=== PATIENT | female | born 1955 | race African-American/Black ===

== ENCOUNTER 2019-02-25 01:22 | Emergency (ER) | payer OTHER ==
[~2019-02-25] VITALS: Ht 170.2 cm; Wt 127.0 kg
[2019-02-25 02:58] LABS: Urine Bacteria FEW /hpf (None Seen); Urine Blood 1+ /uL (Negative); Urine Budding Yeast OCCASIONAL /hpf (None Seen); Urine Specific Gravity 1.023 (1.001-1.035); Urine WBC 3 /hpf (0 - 5)
[2019-02-25] MEDS ORDERED: SODIUM CHLORIDE 0.9% 1,000 ML IV ONE (07:36)
[2019-02-25 07:58] LABS: Basophils # (auto) 0.1 uL; Basophils % (auto) 0.8 % (0.0-2.0); Hemoglobin 13.3 g/dL (12.2-16.2); Mean Corpuscular Hemoglobin 25.8 pg (28.0-32.0); Nucleated Red Blood Cells % 0.1 %
[2019-02-25 08:00] LABS: Eosinophils # (auto) 0.4 uL; Eosinophils % (auto) 4.7 % (0.0-7.0); Hematocrit 41.4 % (36.0-46.0); Lymphocytes # (auto) 2.9 uL; Lymphocytes % (auto) 32.5 % (10.0-50.0); Mean Corpuscular Hgb Conc. 32.2 g/dL (32.0-36.0); Mean Corpuscular Volume 80.1 fL (80.0-100.0); Monocytes # (auto) 0.8 uL; Neutrophils # (auto) 4.7 uL; Platelet Count (auto) 234 10^3/uL (140-450); Red Blood Cells 5.17 10^6/uL (4.0-5.20); Red Cell Distribution Width 14.7 % (11.8-14.3); White Blood Cell 8.9 10^3/uL (4.4-10.8)
[2019-02-25 08:12] LABS: Albumin 3.3 g/dL (3.4-5.0); BUN/Creatinine Ratio 14.9; Calcium 9.3 mg/dL (8.5-10.1); Potassium 3.1 mmol/L (3.5-5.1)
[2019-02-25 08:17] LABS: Bilirubin, Total 0.5 mg/dL (0.2-1.0); Total Protein 7.7 g/dL (6.4-8.2)
[2019-02-25] MEDS ORDERED: IOHEXOL 350 MG/ML 100ML IJ ONE (08:41)
[2019-02-25] MEDS ORDERED: POTASSIUM EFFERVESENT TAB 25 MEQ PO ONE (08:45)
[2019-02-25 14:01] VITALS: BP 174/89
== END 2019-02-25 14:46 | disposition home or self-care (01) ==
LOC: ER 01:22
DX: R00.2 Palpitations (principal); E87.6 Hypokalemia; E44.1 Mild protein-calorie malnutrition; I49.3 Ventricular premature depolarization; I11.0 Hypertensive heart disease with heart failure; I50.9 Heart failure, unspecified; Z90.710 Acquired absence of both cervix and uterus; Z68.41 Body mass index [BMI] 40.0-44.9, adult; Z87.440 Personal history of urinary (tract) infections
CPT/HCPCS: 36415; 71046; 71275; 80053; 81001; 83735; 84443; 84484; 85025; 85379; 94761; 99284; Q9967

== ENCOUNTER 2022-02-06 17:24 | Inpatient (IN) | payer OTHER ==
[~2022-02-06] VITALS: Ht 167.6 cm; Wt 132.0 kg
[2022-02-06] MEDS ORDERED: ASPirin 325 MG TAB PO ONE (19:00)
[2022-02-06 19:21] LABS: Eosinophils # (auto) 0.2 10 ^3/uL (0-0.8); Mean Corpuscular Hemoglobin 25.4 pg (28.0-32.0); Mean Corpuscular Hgb Conc. 32.5 g/dL (32.0-36.0); Monocytes # (auto) 1.2 10 ^3/uL (0-1.3); Nucleated Red Blood Cells % 0.1 %
[2022-02-06 19:23] LABS: Basophils # (auto) 0.1 10 ^3/uL (0-0.2); Basophils % (auto) 0.5 % (0.0-2.0); Eosinophils % (auto) 1.4 % (0.0-7.0); Hematocrit 44.8 % (36.0-46.0); Hemoglobin 14.6 g/dL (12.2-16.2); Lymphocytes # (auto) 1.9 10 ^3/uL (0.4-5.4); Lymphocytes % (auto) 14.3 % (10.0-50.0); Mean Corpuscular Volume 78.4 fL (80.0-100.0); Monocytes % (auto) 9.4 % (0.0-12.0); Neutrophils # (auto) 9.8 10 ^3/uL (1.6-8.6); Neutrophils % (auto) 74.4 % (37.0-80.0); Red Blood Cells 5.72 10^6/uL (4.0-5.20); Red Cell Distribution Width 15.6 % (11.8-14.3); White Blood Cell 13.3 10^3/uL (4.4-10.8)
[2022-02-06 19:46] LABS: Albumin 3.2 g/dL (3.4-5.0); Calcium 9.8 mg/dL (8.5-10.1)
[2022-02-06 19:49] LABS: BUN/Creatinine Ratio 11.9; Total Protein 8.6 g/dL (6.4-8.2)
[2022-02-06] MEDS ORDERED: NITROGLYCERIN 0.4 MG SL TAB SL ONE (20:30)
[2022-02-06] MEDS ORDERED: MORPHINE SULFATE INJECTION 2 MG/ML SYRG IV PRN (21:45)
[2022-02-06] MEDS ORDERED: ONDANSETRON HCL 4 MG/2 ML VIAL IV PRN (21:45)
[2022-02-06] MEDS ORDERED: NITROGLYCERIN 0.4 MG SL TAB SL PRN (21:45)
[2022-02-06] MEDS ORDERED: ACETAMINOPHEN 325 MG TAB PO PRN (21:45)
[2022-02-06] MEDS ORDERED: ENOXAPARIN SOD 100 MG/1 ML SYRINGE SC ONE (21:45)
[2022-02-06] MEDS ORDERED: TEMAZEPAM 15 MG CAP PO PRN (21:45)
[2022-02-06] MEDS: SACUBITRIL-VALSARTAN 24mg/26mg TAB PO SCH (23:11)
[2022-02-06] MEDS: ATORVASTATIN 20 MG TAB PO SCH (23:11)
[2022-02-07 02:25] VITALS: BP 146/74
[2022-02-07 05:00] VITALS: BP 134/72
[2022-02-07] MEDS: BUMETANIDE 1 MG TAB PO SCH ×2 (05:27→16:20)
[2022-02-07 06:31] LABS: Basophils # (auto) 0.1 10 ^3/uL (0-0.2); Neutrophils % (auto) 60.5 % (37.0-80.0)
[2022-02-07 06:35] LABS: Basophils % (auto) 1.2 % (0.0-2.0); Eosinophils # (auto) 0.1 10 ^3/uL (0-0.8); Hematocrit 41.6 % (36.0-46.0); Hemoglobin 13.6 g/dL (12.2-16.2); Lymphocytes % (auto) 25.1 % (10.0-50.0); Mean Corpuscular Hemoglobin 25.4 pg (28.0-32.0); Mean Corpuscular Hgb Conc. 32.7 g/dL (32.0-36.0); Mean Corpuscular Volume 77.5 fL (80.0-100.0); Monocytes # (auto) 1.4 10 ^3/uL (0-1.3); Monocytes % (auto) 12.2 % (0.0-12.0); Neutrophils # (auto) 7.2 10 ^3/uL (1.6-8.6); Nucleated Red Blood Cells % 0.1 %; Red Blood Cells 5.37 10^6/uL (4.0-5.20); Red Cell Distribution Width 15.4 % (11.8-14.3); White Blood Cell 11.9 10^3/uL (4.4-10.8)
[2022-02-07 07:05] LABS: Albumin 2.9 g/dL (3.4-5.0); BUN/Creatinine Ratio 14.1; Calcium 9.6 mg/dL (8.5-10.1); Potassium 3.3 mmol/L (3.5-5.1)
[2022-02-07 07:08] LABS: Bilirubin, Total 1.1 mg/dL (0.2-1.0)
[2022-02-07] MEDS: SACUBITRIL-VALSARTAN 24mg/26mg TAB PO SCH ×2 (08:23→22:10)
[2022-02-07] MEDS: ASPirin 81 mg TAB PO SCH (08:23)
[2022-02-07] MEDS: NIFEdipine ER 30 MG TAB PO SCH (08:24)
[2022-02-07] MEDS: PANTOPRAZOLE 40 MG TAB PO SCH (08:24)
[2022-02-07 09:00] VITALS: BP 116/53
[2022-02-07] MEDS: ENOXAPARIN SOD 40 MG/0.4 ML SYRINGE SC SCH ×2 (10:57→12:10)
[2022-02-07] MEDS ORDERED: ENOXAPARIN SOD 150 MG/1 ML SYRINGE SC ONE (12:15)
[2022-02-07] MEDS: AZITHROMYCIN 500MG/ 250ML 250 ML IV SCH (12:42)
[2022-02-07] MEDS: cefTRIAXone 1GM/50ML D5W 50 ML IV SCH (12:42)
[2022-02-07 13:00] VITALS: BP 121/71
[2022-02-07] MEDS ORDERED: POTASSIUM CHL 20 Meq TABLET PO ONE (15:30)
[2022-02-07] MEDS ORDERED: DOCUSATE SOD 100 MG CAP PO PRN (15:45)
[2022-02-07 17:00] VITALS: BP 99/76
[2022-02-07 22:00] VITALS: BP 122/79
[2022-02-07] MEDS: ATORVASTATIN 20 MG TAB PO SCH (22:10)
[2022-02-08 05:00] VITALS: BP 154/87
[2022-02-08] MEDS: BUMETANIDE 1 MG TAB PO SCH ×2 (05:54→18:00)
[2022-02-08 06:14] LABS: Urine Bacteria FEW /hpf (None Seen); Urine Blood 2+ /uL (Negative); Urine Specific Gravity 1.006 (1.001-1.035); Urine WBC <1 /hpf (0 - 5)
[2022-02-08 07:11] LABS: INR 1.05 (0.9-1.15); Partial Thromboplastin Time 27.9 sec (23.6-33.0)
[2022-02-08 09:00] VITALS: BP 139/70
[2022-02-08 10:01] LABS: BUN/Creatinine Ratio 15.1; Potassium 3.5 mmol/L (3.5-5.1)
[2022-02-08] MEDS: cefTRIAXone 1GM/50ML D5W 50 ML IV SCH (11:33)
[2022-02-08] MEDS: ASPirin 81 mg TAB PO SCH (11:34)
[2022-02-08] MEDS: NIFEdipine ER 30 MG TAB PO SCH (11:34)
[2022-02-08] MEDS: AZITHROMYCIN 500MG/ 250ML 250 ML IV SCH (11:35)
[2022-02-08] MEDS: PANTOPRAZOLE 40 MG TAB PO SCH (11:35)
[2022-02-08] MEDS: SACUBITRIL-VALSARTAN 24mg/26mg TAB PO SCH ×2 (11:36→22:59)
[2022-02-08 13:00] VITALS: BP 97/60
[2022-02-08 17:00] VITALS: BP 122/75
[2022-02-08 22:00] VITALS: BP 110/64
[2022-02-08] MEDS: ATORVASTATIN 20 MG TAB PO SCH (23:00)
[2022-02-09] VITALS (8 sets, daily range): BP systolic 115–136; BP diastolic 58–84
[2022-02-09] MEDS: BUMETANIDE 1 MG TAB PO SCH ×2 (05:44→16:18)
[2022-02-09] MEDS ORDERED: VERAPAMIL 2.5MG/ML INJ 2ML VIAL IV ONE (08:59)
[2022-02-09] MEDS ORDERED: HEPARIN SODIUM (PORCINE) 5000 UNITS/ML 1ML VIAL ONE (08:59)
[2022-02-09] MEDS ORDERED: SODIUM CHL 0.9% 0 ML ONE (08:59)
[2022-02-09] MEDS ORDERED: ANGIOMAX 250 MG VIAL IV ONE (08:59)
[2022-02-09] MEDS ORDERED: fentaNYL CITRATE 100 MCG/2 ML VL ONE (08:59)
[2022-02-09] MEDS ORDERED: MIDAZOLAM HCL 2MG/2ML 2ml VIAL (1mg/ml) ONE (08:59)
[2022-02-09] MEDS ORDERED: LIDOCAINE 2%HCL (LOCAL ANESTH.) INJ 10ml MDV ONE (09:00)
[2022-02-09] MEDS: cefTRIAXone 1GM/50ML D5W 50 ML IV SCH (09:00)
[2022-02-09] MEDS ORDERED: IODIXANOL 320MG/ML 100ML BTL IV ONE (09:00)
[2022-02-09] MEDS: SACUBITRIL-VALSARTAN 24mg/26mg TAB PO SCH (10:00)
[2022-02-09] MEDS: ASPirin 81 mg TAB PO SCH (10:00)
[2022-02-09] MEDS: NIFEdipine ER 30 MG TAB PO SCH (10:00)
[2022-02-09] MEDS: AZITHROMYCIN 500MG/ 250ML 250 ML IV SCH (10:00)
[2022-02-09] MEDS: PANTOPRAZOLE 40 MG TAB PO SCH (10:00)
[2022-02-09] MEDS ORDERED: ATOR20TA50 PO (11:40)
[2022-02-09] MEDS ORDERED: DOXY-286 PO (12:46)
[2022-02-09] MEDS ORDERED: ENOXAPARIN SOD 40 MG/0.4 ML SYRINGE SC SCH (22:00)
== END 2022-02-09 17:30 | disposition home or self-care (01) | DRG 281 ==
LOC: ER 17:24 → TELE 21:36 → TELE-CENTR 23:47
PROVIDERS: ADMIT Nurse Practitioner; ATTEND Internal Medicine
PROC: B211YZZ Fluoroscopy of Multiple Coronary Arteries using Other Contrast (ICD-10-PCS; principal; 2022-02-09)
DX: I21.4 Non-ST elevation (NSTEMI) myocardial infarction (principal); Z68.42 Body mass index [BMI] 45.0-49.9, adult; I50.9 Heart failure, unspecified; I11.0 Hypertensive heart disease with heart failure; E78.5 Hyperlipidemia, unspecified; D72.829 Elevated white blood cell count, unspecified; E66.01 Morbid (severe) obesity due to excess calories; I25.10 Atherosclerotic heart disease of native coronary artery without angina pectoris; M06.9 Rheumatoid arthritis, unspecified; R71.8 Other abnormality of red blood cells; R79.89 Other specified abnormal findings of blood chemistry; Z20.822 Contact with and (suspected) exposure to COVID-19; Z79.82 Long term (current) use of aspirin; I25.2 Old myocardial infarction; Z90.710 Acquired absence of both cervix and uterus
CPT/HCPCS: 36415; 71045; 80048; 80053; 80061; 81001; 83880; 84484; 85025; 85379; 85610; 85730; 86850; 86900; 86901; 93005; 93306; 96365; 96368; 96372; 99152; 99291; G0378; J0696; J2001; J2250; Q9967

== ENCOUNTER 2022-11-28 11:04 | Inpatient (IN) | payer OTHER ==
[~2022-11-28] VITALS: Ht 165.1 cm; Wt 139.6 kg
[~2022-11-28 11:04] MED LIST: ATOR20TA50 PO; DOXY-286 PO
[2022-11-28 11:34] LABS: Basophils # (auto) 0.1 10 ^3/uL (0-0.2); Basophils % (auto) 1.1 % (0.0-2.0); Eosinophils # (auto) 0.2 10 ^3/uL (0-0.8); Neutrophils # (auto) 6.1 10 ^3/uL (1.6-8.6)
[2022-11-28 11:36] LABS: Eosinophils % (auto) 2.3 % (0.0-7.0); Hematocrit 39.4 % (36.0-46.0); Hemoglobin 12.9 g/dL (12.2-16.2); Lymphocytes # (auto) 2.4 10 ^3/uL (0.4-5.4); Lymphocytes % (auto) 24.5 % (10.0-50.0); Mean Corpuscular Hemoglobin 26.1 pg (28.0-32.0); Mean Corpuscular Hgb Conc. 32.8 g/dL (32.0-36.0); Mean Corpuscular Volume 79.7 fL (80.0-100.0); Monocytes # (auto) 0.9 10 ^3/uL (0-1.3); Neutrophils % (auto) 63.1 % (37.0-80.0); Nucleated Red Blood Cells % 0.2 %; Red Blood Cells 4.94 10^6/uL (4.0-5.20); Red Cell Distribution Width 15.5 % (11.8-14.3); White Blood Cell 9.6 10^3/uL (4.4-10.8)
[2022-11-28 11:52] LABS: BUN/Creatinine Ratio 9.3; Calcium 9.7 mg/dL (8.5-10.1); Magnesium 1.9 mg/dL (1.6-2.6)
[2022-11-28 11:55] LABS: Bilirubin, Total 2.3 mg/dL (0.2-1.0); Total Protein 7.6 g/dL (6.4-8.2)
[2022-11-28] MEDS ORDERED: ASPirin 81 mg TAB ONE (12:35)
[2022-11-28] MEDS ORDERED: ASPirin 81 mg TAB PO ONE (12:45)
[2022-11-28] MEDS ORDERED: dilTIAZem 25 MG/5 ML VIAL IV ONE (14:00)
[2022-11-28] MEDS ORDERED: dilTIAZem HCL 60 MG TAB PO ONE (14:45)
[2022-11-28] MEDS ORDERED: ONDANSETRON HCL 4 MG/2 ML VIAL IV ONE (16:30)
[2022-11-28 17:26] LABS: Urine Bacteria NONE SEEN /hpf (None Seen); Urine Blood 2+ /uL (Negative); Urine Hyaline Cast FEW /lpf (0 - 2); Urine Mucus FEW (None Seen); Urine Specific Gravity 1.028 (1.001-1.035); Urine WBC <1 /hpf (0 - 5)
[2022-11-28] MEDS ORDERED: SODIUM CHLORIDE 0.9% 1,000 ML IV SCH (17:45)
[2022-11-28] MEDS ORDERED: ACETAMINOPHEN 325 MG TAB PO PRN (17:45)
[2022-11-28] MEDS ORDERED: NITROGLYCERIN 0.4 MG SL TAB SL PRN (17:45)
[2022-11-28] MEDS ORDERED: ENOXAPARIN SOD 150 MG/1 ML SYRINGE SC ONE (17:45)
[2022-11-28] MEDS ORDERED: MORPHINE SULFATE INJ 2 MG/ml SYRG IV PRN (17:45)
[2022-11-28] MEDS ORDERED: METOPROLOL TARTRATE 1MG/1ML-5ML VIAL IV PRN (17:45)
[2022-11-28] MEDS: METOPROLOL TARTRATE 25 MG TAB PO SCH (18:29)
[2022-11-29] MEDS: ONDANSETRON HCL 4 MG/2 ML VIAL IV PRN ×2 (01:32→17:48)
[2022-11-29] MEDS: DOCUSATE SOD 100 MG CAP PO PRN (01:45)
[2022-11-29] MEDS ORDERED: ENOXAPARIN SOD 150 MG/1 ML SYRINGE SC SCH ×2 (06:00→07:15)
[2022-11-29] MEDS: FUROSEMIDE 20 MG/2 ML VIAL IV SCH (11:21)
[2022-11-29] MEDS: METOPROLOL TARTRATE 25 MG TAB PO SCH ×2 (11:25→22:17)
[2022-11-29] MEDS: AMIODARONE HCL 200 MG TAB PO SCH ×2 (14:07→22:17)
[2022-11-29] MEDS: RIVAROXABAN 20 MG TAB PO SCH (18:38)
[2022-11-29] MEDS: SACUBITRIL-VALSARTAN 24mg/26mg TAB PO SCH (22:16)
[2022-11-30 00:36] VITALS: BP 104/57
[2022-11-30 05:00] VITALS: BP 117/63
[2022-11-30 06:26] LABS: Basophils # (auto) 0.1 10 ^3/uL (0-0.2); Basophils % (auto) 0.6 % (0.0-2.0); Eosinophils # (auto) 0.3 10 ^3/uL (0-0.8); Eosinophils % (auto) 3.7 % (0.0-7.0); Hematocrit 39.8 % (36.0-46.0); Hemoglobin 12.9 g/dL (12.2-16.2); Lymphocytes # (auto) 2.5 10 ^3/uL (0.4-5.4); Lymphocytes % (auto) 26.7 % (10.0-50.0); Mean Corpuscular Hemoglobin 26.1 pg (28.0-32.0); Mean Corpuscular Hgb Conc. 32.3 g/dL (32.0-36.0); Mean Corpuscular Volume 80.6 fL (80.0-100.0); Monocytes # (auto) 0.8 10 ^3/uL (0-1.3); Monocytes % (auto) 8.4 % (0.0-12.0); Neutrophils # (auto) 5.6 10 ^3/uL (1.6-8.6); Neutrophils % (auto) 60.6 % (37.0-80.0); Nucleated Red Blood Cells % 0.2 %; Red Blood Cells 4.94 10^6/uL (4.0-5.20); Red Cell Distribution Width 15.6 % (11.8-14.3); White Blood Cell 9.2 10^3/uL (4.4-10.8)
[2022-11-30 06:27] LABS: Calcium 9.7 mg/dL (8.5-10.1); Magnesium 2.1 mg/dL (1.6-2.6); Potassium 3.9 mmol/L (3.5-5.1)
[2022-11-30 06:33] LABS: BUN/Creatinine Ratio 18.4
[2022-11-30 08:00] VITALS: BP 108/79
[2022-11-30] MEDS: SACUBITRIL-VALSARTAN 24mg/26mg TAB PO SCH ×2 (10:32→21:38)
[2022-11-30] MEDS: FUROSEMIDE 20 MG/2 ML VIAL IV SCH (10:33)
[2022-11-30] MEDS: METOPROLOL TARTRATE 25 MG TAB PO SCH ×2 (10:33→21:39)
[2022-11-30] MEDS: AMIODARONE HCL 200 MG TAB PO SCH ×2 (10:33→21:39)
[2022-11-30 13:00] VITALS: BP 112/73
[2022-11-30] MEDS ORDERED: MET25T PO (16:36)
[2022-11-30] MEDS ORDERED: RIV20T PO (16:36)
[2022-11-30] MEDS ORDERED: SACU1TAB PO (16:38)
[2022-11-30] MEDS ORDERED: AMIO200T33 PO (16:38)
[2022-11-30 16:41] VITALS: BP 99/56
[2022-11-30] MEDS: RIVAROXABAN 20 MG TAB PO SCH (18:01)
[2022-11-30] MEDS: DOCUSATE SOD 100 MG CAP PO PRN (21:45)
[2022-11-30 22:00] VITALS: BP 107/73
[2022-12-01 05:00] VITALS: BP 108/77
[2022-12-01 08:57] VITALS: BP 109/58
[2022-12-01] MEDS: FUROSEMIDE 20 MG/2 ML VIAL IV SCH (10:50)
[2022-12-01] MEDS: SACUBITRIL-VALSARTAN 24mg/26mg TAB PO SCH (10:50)
[2022-12-01] MEDS: METOPROLOL TARTRATE 25 MG TAB PO SCH (10:51)
[2022-12-01] MEDS: AMIODARONE HCL 200 MG TAB PO SCH (10:51)
[2022-12-01 13:00] VITALS: BP 131/67
[2022-12-01 14:16] VITALS: BP 109/58
[2022-12-01 16:55] VITALS: BP 117/52
[2022-12-01] MEDS: RIVAROXABAN 20 MG TAB PO SCH (18:00)
== END 2022-12-01 18:47 | disposition home health service (06) | DRG 291 ==
LOC: ER 11:04 → TELE 17:41 → TELE-WESTW 11-29 22:57
PROVIDERS: ADMIT Internal Medicine; ATTEND Internal Medicine
DX: I11.0 Hypertensive heart disease with heart failure (principal); I50.43 Acute on chronic combined systolic (congestive) and diastolic (congestive) heart failure; J98.11 Atelectasis; J91.8 Pleural effusion in other conditions classified elsewhere; Z68.43 Body mass index [BMI] 50.0-59.9, adult; I24.8 Other forms of acute ischemic heart disease; I48.91 Unspecified atrial fibrillation; E78.5 Hyperlipidemia, unspecified; I34.0 Nonrheumatic mitral (valve) insufficiency; E66.01 Morbid (severe) obesity due to excess calories; M06.9 Rheumatoid arthritis, unspecified; Z90.710 Acquired absence of both cervix and uterus; Z20.822 Contact with and (suspected) exposure to COVID-19
CPT/HCPCS: 36415; 36600; 71045; 71275; 78582; 80048; 80053; 81001; 82805; 83735; 83880; 84439; 84443; 84484; 85025; 85379; 87426; 93005; 93306; 93970; 96361; 96374; 96375; 99291; G0378; J2405

== ENCOUNTER 2023-01-26 05:01 | Inpatient (IN) | payer OTHER ==
[~2023-01-26] VITALS: Ht 170.2 cm; Wt 119.3 kg
[~2023-01-26 05:01] MED LIST changes: +AMIO200T33 PO; +MET25T PO; +RIV20T PO; +SACU1TAB PO
[2023-01-26 06:48] LABS: Eosinophils # (auto) 0.2 10 ^3/uL (0-0.8); Hemoglobin 11.9 g/dL (12.2-16.2); Nucleated Red Blood Cells % 0.1 %
[2023-01-26 06:49] LABS: Basophils # (auto) 0.2 10 ^3/uL (0-0.2); Basophils % (auto) 1.9 % (0.0-2.0); Eosinophils % (auto) 2.1 % (0.0-7.0); Hematocrit 36.7 % (36.0-46.0); Lymphocytes # (auto) 1.9 10 ^3/uL (0.4-5.4); Lymphocytes % (auto) 20.1 % (10.0-50.0); Mean Corpuscular Hgb Conc. 32.5 g/dL (32.0-36.0); Mean Corpuscular Volume 76.8 fL (80.0-100.0); Monocytes % (auto) 10.8 % (0.0-12.0); Neutrophils # (auto) 6.1 10 ^3/uL (1.6-8.6); Neutrophils % (auto) 65.1 % (37.0-80.0); Red Blood Cells 4.78 10^6/uL (4.0-5.20); Red Cell Distribution Width 16.4 % (11.8-14.3); White Blood Cell 9.4 10^3/uL (4.4-10.8)
[2023-01-26 07:08] LABS: Albumin 3.1 g/dL (3.4-5.0); BUN/Creatinine Ratio 16.2 (10.0-20.0); Calcium 9.3 mg/dL (8.5-10.1); Potassium 3.9 mmol/L (3.5-5.1)
[2023-01-26 07:12] LABS: Total Protein 7.6 g/dL (6.4-8.2)
[2023-01-26 07:23] LABS: INR 1.36 (0.9-1.15); Partial Thromboplastin Time 29.2 sec (24.6-33.4)
[2023-01-26] MEDS ORDERED: SODIUM CHLORIDE 0.9% 250 ML IV ONE (07:30)
[2023-01-26 13:50] LABS: Urine Bacteria NONE SEEN /hpf (None Seen); Urine Blood 2+ /uL (Negative); Urine Specific Gravity 1.022 (1.001-1.035); Urine WBC 2 /hpf (0 - 5)
[2023-01-26] MEDS ORDERED: MORPHINE SULFATE INJ 2 MG/ml SYRG IV PRN ×2 (17:00)
[2023-01-26] MEDS ORDERED: ONDANSETRON HCL 4 MG/2 ML VIAL IV PRN (17:00)
[2023-01-26] MEDS ORDERED: NITROGLYCERIN 0.4 MG SL TAB SL PRN (17:00)
[2023-01-26] MEDS ORDERED: HYDROcodone-ACET 5/325MG TAB PO PRN (17:00)
[2023-01-26] MEDS ORDERED: ACETAMINOPHEN 325 MG TAB PO PRN (17:00)
[2023-01-26] MEDS: SACUBITRIL-VALSARTAN 24mg/26mg TAB PO SCH (22:35)
[2023-01-26] MEDS: AMIODARONE HCL 200 MG TAB PO SCH (22:35)
[2023-01-26] MEDS: BUMETANIDE 1mg/4ml VIAL (0.25mg/ml) IV SCH (22:35)
[2023-01-26] MEDS: METOPROLOL TARTRATE 25 MG TAB PO SCH (22:36)
[2023-01-26] MEDS: ENOXAPARIN SOD 150 MG/1 ML SYRINGE SC SCH (22:39)
[2023-01-27] MEDS: METOPROLOL TARTRATE 25 MG TAB PO SCH ×3 (02:20→22:15)
[2023-01-27] MEDS: ENOXAPARIN SOD 150 MG/1 ML SYRINGE SC SCH ×2 (06:04→17:38)
[2023-01-27] MEDS: BUMETANIDE 1mg/4ml VIAL (0.25mg/ml) IV SCH ×2 (06:05→18:03)
[2023-01-27 06:37] LABS: Albumin 3.1 g/dL (3.4-5.0); BUN/Creatinine Ratio 15.2 (10.0-20.0); Calcium 9.6 mg/dL (8.5-10.1)
[2023-01-27 07:13] LABS: Hematocrit 39.1 % (36.0-46.0); Hemoglobin 12.8 g/dL (12.2-16.2); Mean Corpuscular Hemoglobin 25.1 pg (28.0-32.0); Mean Corpuscular Hgb Conc. 32.7 g/dL (32.0-36.0); Red Blood Cells 5.08 10^6/uL (4.0-5.20); Red Cell Distribution Width 16.3 % (11.8-14.3); White Blood Cell 9.6 10^3/uL (4.4-10.8)
[2023-01-27 07:15] LABS: Basophils % (manual) 0 (0.0-2.0); Blast Cells 0; Metamyelocytes % 0; Myelocytes % 0; Promyelocytes % 0; Reactive Lymphocytes 0
[2023-01-27 08:20] LABS: Band Neutrophils % (manual) 4; Eosinophils % (manual) 2 (0-7); Lymphocytes % (manual) 39 (10.0-50.0); Monocytes % (manual) 8 (0-12)
[2023-01-27] MEDS: AMIODARONE HCL 200 MG TAB PO SCH ×2 (10:25→22:14)
[2023-01-27] MEDS: SACUBITRIL-VALSARTAN 24mg/26mg TAB PO SCH ×2 (11:07→22:14)
[2023-01-27] MEDS ORDERED: FURO40TA4 PO (20:53)
[2023-01-27] MEDS ORDERED: BUME2TAB5 PO (20:53)
[2023-01-27] MEDS ORDERED: POTA1TAB4 PO (20:53)
[2023-01-27 22:00] VITALS: BP 113/63
[2023-01-27] MEDS ORDERED: ATORVASTATIN 20 MG TAB PO SCH (22:00)
[2023-01-28 05:00] VITALS: BP 117/70
[2023-01-28] MEDS: ENOXAPARIN SOD 150 MG/1 ML SYRINGE SC SCH ×2 (06:14→17:00)
[2023-01-28] MEDS: BUMETANIDE 1mg/4ml VIAL (0.25mg/ml) IV SCH ×2 (06:15→18:00)
[2023-01-28 08:57] VITALS: BP 121/66
[2023-01-28] MEDS: AMIODARONE HCL 200 MG TAB PO SCH (09:22)
[2023-01-28] MEDS: METOPROLOL TARTRATE 25 MG TAB PO SCH (09:23)
[2023-01-28] MEDS: SACUBITRIL-VALSARTAN 24mg/26mg TAB PO SCH (09:23)
[2023-01-28 13:00] VITALS: BP 99/64
[2023-01-28 14:34] VITALS: BP 106/65
== END 2023-01-28 17:00 | disposition home or self-care (01) | DRG 280 ==
LOC: ER 05:01 → TELE 16:57 → TELE-EAST 01-27 19:00
PROVIDERS: ADMIT Internal Medicine; ATTEND Internal Medicine
DX: I21.4 Non-ST elevation (NSTEMI) myocardial infarction (principal); I50.23 Acute on chronic systolic (congestive) heart failure; I42.9 Cardiomyopathy, unspecified; I11.0 Hypertensive heart disease with heart failure; I25.10 Atherosclerotic heart disease of native coronary artery without angina pectoris; E66.01 Morbid (severe) obesity due to excess calories; I34.0 Nonrheumatic mitral (valve) insufficiency; I48.0 Paroxysmal atrial fibrillation; Z79.01 Long term (current) use of anticoagulants; Z82.49 Family history of ischemic heart disease and other diseases of the circulatory system; Z83.3 Family history of diabetes mellitus
CPT/HCPCS: 36415; 71045; 76705; 80053; 81001; 83880; 84484; 85007; 85025; 85027; 85610; 85730; 93005; 96361; 96372; 96374; 97110; 97116; 97163; 97530; G0378

== ENCOUNTER 2023-02-20 14:37 | Inpatient (IN) | payer OTHER ==
[~2023-02-20] VITALS: Ht 170.2 cm; Wt 139.5 kg
[~2023-02-20 14:37] MED LIST changes: +BUME2TAB5 PO; -DOXY-286 PO; +POTA1TAB4 PO
[2023-02-20 15:09] LABS: Basophils # (auto) 0.1 10 ^3/uL (0-0.2); Eosinophils # (auto) 0.1 10 ^3/uL (0-0.8); Lymphocytes # (auto) 2.1 10 ^3/uL (0.4-5.4); Monocytes # (auto) 0.8 10 ^3/uL (0-1.3); Neutrophils % (auto) 58.4 % (37.0-80.0); Nucleated Red Blood Cells % 0.3 %
[2023-02-20 15:11] LABS: Basophils % (auto) 1.1 % (0.0-2.0); Eosinophils % (auto) 1.7 % (0.0-7.0); Hematocrit 37.5 % (36.0-46.0); Mean Corpuscular Hemoglobin 24.2 pg (28.0-32.0); Mean Corpuscular Hgb Conc. 31.9 g/dL (32.0-36.0); Mean Corpuscular Volume 75.9 fL (80.0-100.0); Monocytes % (auto) 10.8 % (0.0-12.0); Neutrophils # (auto) 4.5 10 ^3/uL (1.6-8.6); Red Blood Cells 4.94 10^6/uL (4.0-5.20); Red Cell Distribution Width 17.5 % (11.8-14.3); White Blood Cell 7.6 10^3/uL (4.4-10.8)
[2023-02-20 15:25] LABS: INR 1.19 (0.9-1.15); Partial Thromboplastin Time 25.4 sec (24.6-33.4)
[2023-02-20 15:27] LABS: Albumin 3.5 g/dL (3.4-5.0); Calcium 9.6 mg/dL (8.5-10.1); Potassium 4.2 mmol/L (3.5-5.1)
[2023-02-20 15:34] LABS: Bilirubin, Total 3.2 mg/dL (0.2-1.0); Total Protein 7.7 g/dL (6.4-8.2)
[2023-02-20 19:26] LABS: Urine Amorphous Crystal FEW /hpf (None Seen); Urine Bacteria NONE SEEN /hpf (None Seen); Urine Blood 2+ /uL (Negative); Urine Hyaline Cast FEW /lpf (0 - 2); Urine Mucus FEW (None Seen); Urine Specific Gravity 1.025 (1.001-1.035); Urine WBC 1 /hpf (0 - 5)
[2023-02-21] MEDS ORDERED: HYDROcodone-ACET 5/325MG TAB PO PRN (17:30)
[2023-02-21] MEDS ORDERED: NITROGLYCERIN 0.4 MG SL TAB SL PRN (17:30)
[2023-02-21] MEDS ORDERED: MORPHINE SULFATE INJ 2 MG/ml SYRG IV PRN ×2 (17:30)
[2023-02-21] MEDS ORDERED: ACETAMINOPHEN 325 MG TAB PO PRN (17:30)
[2023-02-21] MEDS: RIVAROXABAN 20 MG TAB PO SCH (18:11)
[2023-02-21] MEDS: BUMETANIDE 2.5mg/10ml (0.25 mg/ml) INJ IV SCH (18:11)
[2023-02-21] MEDS: ATORVASTATIN 20 MG TAB PO SCH (22:41)
[2023-02-21] MEDS: METOPROLOL TARTRATE 25 MG TAB PO SCH (22:42)
[2023-02-21] MEDS: AMIODARONE HCL 200 MG TAB PO SCH (22:42)
[2023-02-21] MEDS: SACUBITRIL-VALSARTAN 24mg/26mg TAB PO SCH (22:42)
[2023-02-22] MEDS: ONDANSETRON HCL 4 MG/2 ML VIAL IV PRN (00:43)
[2023-02-22 06:08] LABS: Albumin 3.2 g/dL (3.4-5.0); Calcium 9.7 mg/dL (8.5-10.1); Potassium 3.8 mmol/L (3.5-5.1)
[2023-02-22 06:10] LABS: BUN/Creatinine Ratio 16.4 (10.0-20.0)
[2023-02-22 06:12] LABS: Bilirubin, Total 3.7 mg/dL (0.2-1.0); Total Protein 8.2 g/dL (6.4-8.2)
[2023-02-22] MEDS: BUMETANIDE 2.5mg/10ml (0.25 mg/ml) INJ IV SCH ×2 (06:14→18:00)
[2023-02-22 06:20] LABS: Monocytes # (auto) 0.9 10 ^3/uL (0-1.3); Red Cell Distribution Width 17.4 % (11.8-14.3)
[2023-02-22 06:23] LABS: Basophils # (auto) 0.1 10 ^3/uL (0-0.2); Basophils % (auto) 0.8 % (0.0-2.0); Eosinophils # (auto) 0.4 10 ^3/uL (0-0.8); Eosinophils % (auto) 4.2 % (0.0-7.0); Hematocrit 37.1 % (36.0-46.0); Hemoglobin 11.7 g/dL (12.2-16.2); Lymphocytes # (auto) 1.9 10 ^3/uL (0.4-5.4); Lymphocytes % (auto) 22.5 % (10.0-50.0); Mean Corpuscular Hemoglobin 24.2 pg (28.0-32.0); Mean Corpuscular Hgb Conc. 31.5 g/dL (32.0-36.0); Mean Corpuscular Volume 76.8 fL (80.0-100.0); Monocytes % (auto) 10.5 % (0.0-12.0); Neutrophils # (auto) 5.2 10 ^3/uL (1.6-8.6); Nucleated Red Blood Cells % 0.5 %; Red Blood Cells 4.83 10^6/uL (4.0-5.20); White Blood Cell 8.4 10^3/uL (4.4-10.8)
[2023-02-22] MEDS: AMIODARONE HCL 200 MG TAB PO SCH ×2 (09:41→21:59)
[2023-02-22] MEDS: POTASSIUM CHL 20 Meq TABLET PO SCH (09:41)
[2023-02-22] MEDS: SACUBITRIL-VALSARTAN 24mg/26mg TAB PO SCH ×2 (09:41→21:59)
[2023-02-22] MEDS: METOPROLOL TARTRATE 25 MG TAB PO SCH ×2 (09:42→22:00)
[2023-02-22 14:15] VITALS: BP 102/75
[2023-02-22 17:00] VITALS: BP 95/46
[2023-02-22] MEDS: RIVAROXABAN 20 MG TAB PO SCH (18:45)
[2023-02-22] MEDS: ATORVASTATIN 20 MG TAB PO SCH (21:59)
[2023-02-22 22:00] VITALS: BP 105/64
[2023-02-23] MEDS: ONDANSETRON HCL 4 MG/2 ML VIAL IV PRN (01:24)
[2023-02-23 05:00] VITALS: BP 106/67
[2023-02-23] MEDS: BUMETANIDE 2.5mg/10ml (0.25 mg/ml) INJ IV SCH ×3 (06:00→18:00)
[2023-02-23 09:00] VITALS: BP 111/93
[2023-02-23] MEDS: SACUBITRIL-VALSARTAN 24mg/26mg TAB PO SCH (10:45)
[2023-02-23] MEDS: POTASSIUM CHL 20 Meq TABLET PO SCH (10:46)
[2023-02-23] MEDS: AMIODARONE HCL 200 MG TAB PO SCH (10:46)
[2023-02-23] MEDS: METOPROLOL TARTRATE 25 MG TAB PO SCH (10:46)
[2023-02-23 13:29] VITALS: BP 115/85
[2023-02-23 17:45] VITALS: BP 115/85
[2023-02-23] MEDS: RIVAROXABAN 20 MG TAB PO SCH (18:00)
== END 2023-02-23 19:28 | disposition home health service (06) | DRG 291 ==
LOC: ER 14:37 → TELE 02-21 17:32 → TELE-CENTR 02-22 14:46
PROVIDERS: ADMIT Internal Medicine; ATTEND Internal Medicine
DX: I11.0 Hypertensive heart disease with heart failure (principal); I50.23 Acute on chronic systolic (congestive) heart failure; N17.9 Acute kidney failure, unspecified; I42.9 Cardiomyopathy, unspecified; E66.01 Morbid (severe) obesity due to excess calories; E78.5 Hyperlipidemia, unspecified; I25.10 Atherosclerotic heart disease of native coronary artery without angina pectoris; I34.0 Nonrheumatic mitral (valve) insufficiency; I48.0 Paroxysmal atrial fibrillation; Z82.49 Family history of ischemic heart disease and other diseases of the circulatory system; Z83.3 Family history of diabetes mellitus; Z90.710 Acquired absence of both cervix and uterus
CPT/HCPCS: 36415; 71045; 80053; 81001; 84484; 85025; 85610; 85730; 93005; 96374; 97110; 97163; 97530; G0378; J2405

== ENCOUNTER 2023-03-29 02:07 | Inpatient (IN) | payer OTHER ==
[~2023-03-29] VITALS: Ht 170.2 cm; Wt 146.2 kg
[2023-03-29 02:27] LABS: Eosinophils # (auto) 0.3 10 ^3/uL (0-0.8); Lymphocytes # (auto) 2.1 10 ^3/uL (0.4-5.4); Mean Corpuscular Hgb Conc. 31.4 g/dL (32.0-36.0); Neutrophils # (auto) 3.6 10 ^3/uL (1.6-8.6); Nucleated Red Blood Cells % 0.3 %; Red Cell Distribution Width 18.9 % (11.8-14.3)
[2023-03-29 02:29] LABS: Basophils # (auto) 0.1 10 ^3/uL (0-0.2); Basophils % (auto) 1.2 % (0.0-2.0); Hematocrit 38.1 % (36.0-46.0); Lymphocytes % (auto) 30.3 % (10.0-50.0); Mean Corpuscular Hemoglobin 23.3 pg (28.0-32.0); Mean Corpuscular Volume 74.2 fL (80.0-100.0); Monocytes % (auto) 13.9 % (0.0-12.0); Neutrophils % (auto) 50.6 % (37.0-80.0); Red Blood Cells 5.14 10^6/uL (4.0-5.20); White Blood Cell 7.1 10^3/uL (4.4-10.8)
[2023-03-29 02:50] LABS: Albumin 3.2 g/dL (3.4-5.0); Calcium 8.7 mg/dL (8.5-10.1); Magnesium 2.1 mg/dL (1.6-2.6); Potassium 4.1 mmol/L (3.5-5.1)
[2023-03-29 02:53] LABS: BUN/Creatinine Ratio 16.6 (10.0-20.0); Bilirubin, Total 2.5 mg/dL (0.2-1.0); Total Protein 8.1 g/dL (6.4-8.2)
[2023-03-29] MEDS ORDERED: HYDROcodone-ACET 10/325MG TAB PO ONE (03:15)
[2023-03-29] MEDS ORDERED: SODIUM CHLORIDE 0.9% 500 ML IV ONE (05:00)
[2023-03-29] MEDS ORDERED: ASPirin 325 MG TAB PO ONE (06:15)
[2023-03-29] MEDS ORDERED: ENOXAPARIN SOD 150 MG/1 ML SYRINGE SC ONE (16:00)
[2023-03-29] MEDS: HYDROcodone-ACET 10/325MG TAB PO PRN (16:15)
[2023-03-29] MEDS ORDERED: dilTIAZem 25 MG/5 ML VIAL IV ONE (21:00)
[2023-03-29] MEDS ORDERED: ACETAMINOPHEN 325 MG TAB PO PRN (21:00)
[2023-03-29] MEDS ORDERED: NITROGLYCERIN 0.4 MG SL TAB SL PRN (21:00)
[2023-03-29] MEDS ORDERED: FUROSEMIDE 40 MG/4 ML VIAL IV ONE (21:00)
[2023-03-29] MEDS ORDERED: ONDANSETRON HCL 4 MG/2 ML VIAL IV PRN (21:00)
[2023-03-29] MEDS ORDERED: MORPHINE SULFATE INJ 2 MG/ml SYRG IV PRN (21:00)
[2023-03-29] MEDS: SODIUM CHLOR 0.9% PF (SALINE LOCK) 10ML VIAL/SYR IV SCH (22:00)
[2023-03-29 22:18] LABS: Eosinophils # (auto) 0.2 10 ^3/uL (0-0.8); Hematocrit 38.3 % (36.0-46.0); Monocytes # (auto) 1.2 10 ^3/uL (0-1.3); Neutrophils # (auto) 4.9 10 ^3/uL (1.6-8.6); Nucleated Red Blood Cells % 0.2 %; Red Cell Distribution Width 18.5 % (11.8-14.3)
[2023-03-29 22:19] LABS: Basophils # (auto) 0 10 ^3/uL (0-0.2); Basophils % (auto) 0.5 % (0.0-2.0); Eosinophils % (auto) 2.6 % (0.0-7.0); Lymphocytes # (auto) 2.4 10 ^3/uL (0.4-5.4); Lymphocytes % (auto) 27.5 % (10.0-50.0); Mean Corpuscular Hgb Conc. 31.3 g/dL (32.0-36.0); Mean Corpuscular Volume 73.6 fL (80.0-100.0); Monocytes % (auto) 13.6 % (0.0-12.0); Neutrophils % (auto) 55.8 % (37.0-80.0); White Blood Cell 8.7 10^3/uL (4.4-10.8)
[2023-03-29 22:39] LABS: Albumin 3.4 g/dL (3.4-5.0); Calcium 9.1 mg/dL (8.5-10.1); Potassium 4.1 mmol/L (3.5-5.1)
[2023-03-29] MEDS: CARVEDILOL 12.5 MG TAB PO SCH (22:41)
[2023-03-29 22:43] LABS: BUN/Creatinine Ratio 15.5 (10.0-20.0); Total Protein 8.7 g/dL (6.4-8.2)
[2023-03-29] MEDS: HEPARIN SODIUM (PORCINE) 5000 UNITS/ML 1ML VIAL SC SCH (22:44)
[2023-03-29 23:43] LABS: Urine Bacteria FEW /hpf (None Seen); Urine Blood 2+ /uL (Negative); Urine Hyaline Cast FEW /lpf (0 - 2); Urine Specific Gravity 1.011 (1.001-1.035); Urine WBC 6 /hpf (0 - 5)
[2023-03-30] MEDS: SODIUM CHLOR 0.9% PF (SALINE LOCK) 10ML VIAL/SYR IV SCH ×3 (06:12→22:28)
[2023-03-30 06:26] LABS: Basophils # (auto) 0.1 10 ^3/uL (0-0.2); Basophils % (auto) 0.7 % (0.0-2.0); Monocytes # (auto) 0.9 10 ^3/uL (0-1.3)
[2023-03-30 06:29] LABS: Eosinophils # (auto) 0.2 10 ^3/uL (0-0.8); Eosinophils % (auto) 2.6 % (0.0-7.0); Hematocrit 38.7 % (36.0-46.0); Lymphocytes # (auto) 1.9 10 ^3/uL (0.4-5.4); Lymphocytes % (auto) 23.1 % (10.0-50.0); Mean Corpuscular Hemoglobin 23.5 pg (28.0-32.0); Mean Corpuscular Hgb Conc. 31.1 g/dL (32.0-36.0); Mean Corpuscular Volume 75.6 fL (80.0-100.0); Monocytes % (auto) 11.2 % (0.0-12.0); Neutrophils % (auto) 62.4 % (37.0-80.0); Nucleated Red Blood Cells % 0.1 %; Red Blood Cells 5.12 10^6/uL (4.0-5.20); Red Cell Distribution Width 19.1 % (11.8-14.3); White Blood Cell 8.1 10^3/uL (4.4-10.8)
[2023-03-30 07:04] LABS: Potassium 4.2 mmol/L (3.5-5.1)
[2023-03-30 07:13] LABS: Albumin 2.9 g/dL (3.4-5.0); BUN/Creatinine Ratio 19.3 (10.0-20.0); Calcium 8.9 mg/dL (8.5-10.1); Total Protein 7.9 g/dL (6.4-8.2)
[2023-03-30] MEDS: FUROSEMIDE 40 MG/4 ML VIAL IV SCH (10:42)
[2023-03-30] MEDS: CARVEDILOL 12.5 MG TAB PO SCH ×2 (10:43→22:00)
[2023-03-30] MEDS: ASPirin 81 mg TAB PO SCH (10:44)
[2023-03-30] MEDS: HEPARIN SODIUM (PORCINE) 5000 UNITS/ML 1ML VIAL SC SCH ×2 (10:47→22:28)
[2023-03-30] MEDS: HYDROcodone-ACET 10/325MG TAB PO PRN (21:36)
[2023-03-30] MEDS: SACUBITRIL-VALSARTAN 24mg/26mg TAB PO SCH (22:29)
[2023-03-30 23:13] VITALS: BP 168/103
[2023-03-31 01:19] VITALS: BP 168/103
[2023-03-31 05:00] VITALS: BP 112/72
[2023-03-31] MEDS: DOCUSATE SOD 100 MG CAP PO PRN (05:10)
[2023-03-31] MEDS: SODIUM CHLOR 0.9% PF (SALINE LOCK) 10ML VIAL/SYR IV SCH ×3 (05:12→21:45)
[2023-03-31 06:07] LABS: BUN/Creatinine Ratio 19.6 (10.0-20.0); Calcium 9.1 mg/dL (8.5-10.1); Phosphorus 3.6 mg/dL (2.5-4.90); Potassium 4.5 mmol/L (3.5-5.1); Uric Acid 9.9 mg/dL (2.6-6.0)
[2023-03-31 09:00] VITALS: BP 123/46
[2023-03-31] MEDS: HEPARIN SODIUM (PORCINE) 5000 UNITS/ML 1ML VIAL SC SCH ×2 (09:37→21:44)
[2023-03-31] MEDS: ASPirin 81 mg TAB PO SCH (09:39)
[2023-03-31] MEDS: SACUBITRIL-VALSARTAN 24mg/26mg TAB PO SCH ×2 (09:39→21:45)
[2023-03-31] MEDS: FUROSEMIDE 40 MG/4 ML VIAL IV SCH (09:40)
[2023-03-31] MEDS: CARVEDILOL 12.5 MG TAB PO SCH ×2 (09:48→21:51)
[2023-03-31 13:00] VITALS: BP 117/52
[2023-03-31 17:00] VITALS: BP_SYST 113; BP_SYST 132; BP_DIAS 66; BP_DIAS 78
[2023-03-31 22:00] VITALS: BP 102/62
[2023-04-01] MEDS: HYDROcodone-ACET 10/325MG TAB PO PRN ×2 (02:56→22:28)
[2023-04-01] MEDS: DOCUSATE SOD 100 MG CAP PO PRN (02:56)
[2023-04-01 05:00] VITALS: BP 133/64
[2023-04-01] MEDS: SODIUM CHLOR 0.9% PF (SALINE LOCK) 10ML VIAL/SYR IV SCH ×3 (07:08→22:23)
[2023-04-01 09:00] VITALS: BP 155/74
[2023-04-01] MEDS: HEPARIN SODIUM (PORCINE) 5000 UNITS/ML 1ML VIAL SC SCH (09:55)
[2023-04-01] MEDS: SACUBITRIL-VALSARTAN 24mg/26mg TAB PO SCH ×2 (09:56→22:22)
[2023-04-01] MEDS: FUROSEMIDE 40 MG/4 ML VIAL IV SCH ×2 (09:56→18:14)
[2023-04-01] MEDS: ASPirin 81 mg TAB PO SCH (09:57)
[2023-04-01] MEDS: CARVEDILOL 12.5 MG TAB PO SCH ×2 (09:57→22:22)
[2023-04-01 10:03] LABS: Potassium 4.2 mmol/L (3.5-5.1)
[2023-04-01 10:05] LABS: BUN/Creatinine Ratio 22.3 (10.0-20.0)
[2023-04-01 13:00] VITALS: BP 103/59
[2023-04-01 16:34] VITALS: BP 100/58
[2023-04-01] MEDS ORDERED: RIVAROXABAN 20 MG TAB PO SCH (18:00)
[2023-04-01 20:00] VITALS: BP 117/58
[2023-04-01 20:20] LABS: Hepatitis C Antibody Negative (Negative)
[2023-04-01 22:00] VITALS: BP 117/58
[2023-04-02 05:00] VITALS: BP 96/56
[2023-04-02] MEDS: FUROSEMIDE 40 MG/4 ML VIAL IV SCH (06:00)
[2023-04-02] MEDS: SODIUM CHLOR 0.9% PF (SALINE LOCK) 10ML VIAL/SYR IV SCH ×2 (06:40→15:24)
[2023-04-02 06:45] LABS: Basophils # (auto) 0 10 ^3/uL (0-0.2); Eosinophils # (auto) 0.4 10 ^3/uL (0-0.8); Monocytes # (auto) 0.7 10 ^3/uL (0-1.3); Nucleated Red Blood Cells % 0.2 %; Red Cell Distribution Width 18.4 % (11.8-14.3); White Blood Cell 5.8 10^3/uL (4.4-10.8)
[2023-04-02 06:46] LABS: Basophils % (auto) 0.4 % (0.0-2.0); Eosinophils % (auto) 6.3 % (0.0-7.0); Hematocrit 34.3 % (36.0-46.0); Hemoglobin 10.9 g/dL (12.2-16.2); Lymphocytes # (auto) 1.8 10 ^3/uL (0.4-5.4); Lymphocytes % (auto) 30.5 % (10.0-50.0); Mean Corpuscular Hemoglobin 23.5 pg (28.0-32.0); Mean Corpuscular Hgb Conc. 31.6 g/dL (32.0-36.0); Mean Corpuscular Volume 74.3 fL (80.0-100.0); Monocytes % (auto) 11.9 % (0.0-12.0); Neutrophils % (auto) 50.9 % (37.0-80.0); Red Blood Cells 4.62 10^6/uL (4.0-5.20)
[2023-04-02 06:47] LABS: BUN/Creatinine Ratio 25.2 (10.0-20.0); Calcium 9.1 mg/dL (8.5-10.1); Potassium 4.1 mmol/L (3.5-5.1)
[2023-04-02] MEDS ORDERED: LEVOTHYROXINE SODIUM 50 MCG TAB PO SCH (07:00)
[2023-04-02 08:00] VITALS: BP 105/71
[2023-04-02 08:55] VITALS: BP 105/71
[2023-04-02] MEDS ORDERED: Juven Fruit Punch Powder PACKET 28.8gm PO SCH (10:00)
[2023-04-02] MEDS: SACUBITRIL-VALSARTAN 24mg/26mg TAB PO SCH (10:19)
[2023-04-02] MEDS: CARVEDILOL 12.5 MG TAB PO SCH (10:21)
[2023-04-02] MEDS: ASPirin 81 mg TAB PO SCH (10:22)
[2023-04-02] MEDS ORDERED: BUME2TAB5 PO (12:23)
[2023-04-02 13:00] VITALS: BP 98/66
[2023-04-02 14:06] VITALS: BP 105/71
[2023-04-02 16:55] VITALS: BP 120/64
== END 2023-04-02 17:57 | disposition home health service (06) | DRG 291 ==
LOC: ER 02:07 → TELE 20:50 → TELE-WESTW 03-30 21:36
PROVIDERS: ADMIT Nurse Practitioner Family; ATTEND Hospitalist
DX: I13.0 Hypertensive heart and chronic kidney disease with heart failure and stage 1 through stage 4 chronic kidney disease, or unspecified chronic kidney disease (principal); I50.43 Acute on chronic combined systolic (congestive) and diastolic (congestive) heart failure; J96.01 Acute respiratory failure with hypoxia; N17.0 Acute kidney failure with tubular necrosis; L97.919 Non-pressure chronic ulcer of unspecified part of right lower leg with unspecified severity; Z68.43 Body mass index [BMI] 50.0-59.9, adult; J98.11 Atelectasis; I42.9 Cardiomyopathy, unspecified; E66.01 Morbid (severe) obesity due to excess calories; I48.91 Unspecified atrial fibrillation; Z20.822 Contact with and (suspected) exposure to COVID-19; N18.31 Chronic kidney disease, stage 3a; E78.5 Hyperlipidemia, unspecified; Z79.899 Other long term (current) drug therapy; Z82.49 Family history of ischemic heart disease and other diseases of the circulatory system; Z83.3 Family history of diabetes mellitus; Z86.711 Personal history of pulmonary embolism; Z87.440 Personal history of urinary (tract) infections; Z90.710 Acquired absence of both cervix and uterus
CPT/HCPCS: 36415; 71045; 76775; 80048; 80053; 81001; 82306; 83735; 83880; 84100; 84443; 84484; 84550; 85025; 86803; 87340; 87426; 93005; 96361; 96372; 96374; 96375; 97163; G0378; J2405

== ENCOUNTER 2023-04-18 17:53 | Emergency (ER) | payer OTHER ==
[~2023-04-18] VITALS: Ht 170.2 cm; Wt 134.5 kg
[2023-04-18 19:12] LABS: Monocytes # (auto) 0.9 10 ^3/uL (0-1.3); Neutrophils # (auto) 4.4 10 ^3/uL (1.6-8.6)
[2023-04-18 19:13] LABS: Basophils # (auto) 0 10 ^3/uL (0-0.2); Basophils % (auto) 0.5 % (0.0-2.0); Eosinophils # (auto) 0.4 10 ^3/uL (0-0.8); Eosinophils % (auto) 5.6 % (0.0-7.0); Hemoglobin 11.8 g/dL (12.2-16.2); Lymphocytes # (auto) 1.3 10 ^3/uL (0.4-5.4); Mean Corpuscular Hemoglobin 22.4 pg (28.0-32.0); Mean Corpuscular Hgb Conc. 30.2 g/dL (32.0-36.0); Mean Corpuscular Volume 74.2 fL (80.0-100.0); Monocytes % (auto) 12.2 % (0.0-12.0); Neutrophils % (auto) 62.7 % (37.0-80.0); Nucleated Red Blood Cells % 0.1 %; Red Blood Cells 5.26 10^6/uL (4.0-5.20); White Blood Cell 7.1 10^3/uL (4.4-10.8)
[2023-04-18 19:15] LABS: Red Cell Distribution Width 20.3 % (11.8-14.3)
[2023-04-18 20:01] LABS: Calcium 9.3 mg/dL (8.5-10.1)
[2023-04-18 20:19] LABS: BUN/Creatinine Ratio 16.3 (10.0-20.0); Bilirubin, Total 3.6 mg/dL (0.2-1.0); Total Protein 7.3 g/dL (6.4-8.2)
[2023-04-19] MEDS ORDERED: LACT10SO3 PO (01:53)
[2023-04-19 02:00] VITALS: BP 117/81
== END 2023-04-19 02:30 | disposition home or self-care (01) ==
LOC: ER 17:53
DX: K64.4 Residual hemorrhoidal skin tags (principal); K59.00 Constipation, unspecified; I11.0 Hypertensive heart disease with heart failure; I50.9 Heart failure, unspecified; E78.5 Hyperlipidemia, unspecified; Z90.710 Acquired absence of both cervix and uterus; Z87.440 Personal history of urinary (tract) infections
CPT/HCPCS: 36415; 74176; 80053; 85025; 86850; 86900; 86901; 93005

== ENCOUNTER 2023-04-23 02:00 | Emergency (ER) | payer OTHER ==
[~2023-04-23] VITALS: Ht 170.2 cm; Wt 134.0 kg
[~2023-04-23 02:00] MED LIST changes: +LACT10SO3 PO
[2023-04-23 03:48] LABS: Basophils # (auto) 0 10 ^3/uL (0-0.2); Basophils % (auto) 0.7 % (0.0-2.0); Eosinophils # (auto) 0.2 10 ^3/uL (0-0.8)
[2023-04-23 03:50] LABS: Eosinophils % (auto) 3.8 % (0.0-7.0); Hematocrit 36.6 % (36.0-46.0); Hemoglobin 11.2 g/dL (12.2-16.2); Lymphocytes # (auto) 1.8 10 ^3/uL (0.4-5.4); Lymphocytes % (auto) 31.9 % (10.0-50.0); Mean Corpuscular Hemoglobin 22.5 pg (28.0-32.0); Mean Corpuscular Hgb Conc. 30.6 g/dL (32.0-36.0); Mean Corpuscular Volume 73.5 fL (80.0-100.0); Monocytes % (auto) 17.4 % (0.0-12.0); Neutrophils # (auto) 2.6 10 ^3/uL (1.6-8.6); Neutrophils % (auto) 46.2 % (37.0-80.0); Nucleated Red Blood Cells % 0.2 %; Red Blood Cells 4.98 10^6/uL (4.0-5.20); White Blood Cell 5.7 10^3/uL (4.4-10.8)
[2023-04-23 03:54] LABS: INR 1.42 (0.9-1.15)
[2023-04-23 04:00] LABS: Albumin 2.8 g/dL (3.4-5.0); BUN/Creatinine Ratio 15.6 (10.0-20.0); Calcium 8.9 mg/dL (8.5-10.1); Magnesium 1.7 mg/dL (1.6-2.6); Potassium 3.4 mmol/L (3.5-5.1)
[2023-04-23 04:02] LABS: Bilirubin, Total 2.9 mg/dL (0.2-1.0); Total Protein 7.3 g/dL (6.4-8.2)
[2023-04-23] MEDS ORDERED: PANTOPRAZOLE 80 MG in SODIUM CHL 0.9% 100 ML IV ONE (04:15)
[2023-04-23] MEDS ORDERED: PANTOPRAZOLE 40mg/50ML NS AE 50 ML IV ONE (04:15)
[2023-04-23] MEDS ORDERED: HYDROmorphone HCL 2 MG/ML VL/or syr IV ONE (05:00)
[2023-04-23] MEDS ORDERED: PANTOPRAZOLE 40 MG/10 ML VIAL INJ IV ONE (05:14)
[2023-04-23] MEDS ORDERED: BUMETANIDE 2.5mg/10ml (0.25 mg/ml) INJ IV ONE (11:15)
[2023-04-23 16:00] VITALS: BP 112/70
[2023-04-23] MEDS ORDERED: HYDR25SU21 PR (16:37)
== END 2023-04-23 17:09 | disposition home or self-care (01) ==
LOC: ER 02:00
DX: K62.5 Hemorrhage of anus and rectum (principal); R07.89 Other chest pain; I48.91 Unspecified atrial fibrillation; I11.0 Hypertensive heart disease with heart failure; I50.9 Heart failure, unspecified; E78.5 Hyperlipidemia, unspecified; Z79.899 Other long term (current) drug therapy; Z90.710 Acquired absence of both cervix and uterus
CPT/HCPCS: 36415; 71045; 74176; 80053; 83735; 83880; 84484; 85025; 85610; 85730; 93005; 96365; 96375; 99285; C9113; J1170; 96366

== ENCOUNTER 2023-05-15 07:09 | Inpatient (IN) | payer OTHER ==
[~2023-05-15] VITALS: Ht 170.2 cm; Wt 143.9 kg
[~2023-05-15 07:09] MED LIST changes: -AMIO200T33 PO; +CAR3125T PO; +DAPA1TAB4 PO; +FURO1TAB31 PO; +HYDR25SU21 PR; -MET25T PO
[2023-05-15 08:06] LABS: Basophils # (auto) 0.1 10 ^3/uL (0-0.2); Eosinophils # (auto) 0.5 10 ^3/uL (0-0.8); Hemoglobin 11.1 g/dL (12.2-16.2); Mean Corpuscular Hemoglobin 21.9 pg (28.0-32.0); Monocytes # (auto) 0.7 10 ^3/uL (0-1.3)
[2023-05-15 08:08] LABS: Basophils % (auto) 1.2 % (0.0-2.0); Hematocrit 35.7 % (36.0-46.0); Lymphocytes # (auto) 1.8 10 ^3/uL (0.4-5.4); Lymphocytes % (auto) 26.9 % (10.0-50.0); Mean Corpuscular Hgb Conc. 31.1 g/dL (32.0-36.0); Mean Corpuscular Volume 70.5 fL (80.0-100.0); Monocytes % (auto) 9.7 % (0.0-12.0); Neutrophils # (auto) 3.7 10 ^3/uL (1.6-8.6); Neutrophils % (auto) 55.2 % (37.0-80.0); Nucleated Red Blood Cells % 0.2 %; Red Blood Cells 5.05 10^6/uL (4.0-5.20); White Blood Cell 6.7 10^3/uL (4.4-10.8)
[2023-05-15 08:17] LABS: Red Cell Distribution Width 21.2 % (11.8-14.3)
[2023-05-15 08:18] LABS: Albumin 3.2 g/dL (3.4-5.0); Calcium 9.3 mg/dL (8.5-10.1); Potassium 3.7 mmol/L (3.5-5.1)
[2023-05-15 08:22] LABS: BUN/Creatinine Ratio 15.2 (10.0-20.0); Bilirubin, Total 3.4 mg/dL (0.2-1.0); Total Protein 8.1 g/dL (6.4-8.2)
[2023-05-15] MEDS ORDERED: SPIRONOLACTONE 25 MG TAB PO ONE (11:30)
[2023-05-15] MEDS ORDERED: SODIUM CHLORIDE 0.9% 1,000 ML IV ONE (11:30)
[2023-05-15] MEDS ORDERED: FUROSEMIDE 40 MG/4 ML VIAL IV ONE (11:30)
[2023-05-15 11:55] LABS: INR 1.34 (0.9-1.15); Partial Thromboplastin Time 28.6 SEC (24.5-34.5); Prothrombin Time 13.8 sec (9.3-11.8)
[2023-05-15 12:11] LABS: Urine Bacteria NONE SEEN /hpf (None Seen); Urine Blood Negative /uL (Negative); Urine Clarity Clear (Clear); Urine Color Yellow (Yellow); Urine Hyaline Cast FEW /lpf (0 - 2); Urine Protein, UAD TRACE (Negative); Urine Specific Gravity 1.018 (1.001-1.035); Urine Urobilinogen Normal (Negative); Urine WBC 4 /hpf (0 - 5)
[2023-05-15 14:00] VITALS: PULSE 86; RESP 17; O2SAT 96
[2023-05-15] MEDS ORDERED: LEVOTHYROXINE SODIUM 100 MCG/5 ML INJ IV ONE (16:00)
[2023-05-15] MEDS ORDERED: MORPHINE SULFATE INJ 2 MG/ml SYRG IV PRN (17:30)
[2023-05-15] MEDS ORDERED: NITROGLYCERIN 0.4 MG SL TAB SL PRN (17:30)
[2023-05-15] MEDS ORDERED: ONDANSETRON HCL 4 MG/2 ML VIAL IV PRN (17:45)
[2023-05-15] MEDS: RIVAROXABAN 20 MG TAB PO SCH (19:05)
[2023-05-15] MEDS: BUMETANIDE 2.5mg/10ml (0.25 mg/ml) INJ IV SCH (19:06)
[2023-05-15 19:40] VITALS: PULSE 99; RESP 17; O2SAT 95
[2023-05-15] MEDS: HYDROcodone-ACET 5/325MG TAB PO PRN (20:11)
[2023-05-15] MEDS: POTASSIUM CHL 10 Meq TABLET PO SCH (22:38)
[2023-05-15] MEDS: CARVEDILOL 3.125 MG TAB PO SCH (22:39)
[2023-05-15] MEDS: HYDROCORTISONE ACET 25 MG RECTAL SUPP PR SCH (22:40)
[2023-05-15 22:56] VITALS: BP 119/80; PULSE 102; PULSE 104; RESP 20; TEMP 97.4; O2SAT 96
[2023-05-16] VITALS (7 sets, daily range): BP systolic 91–132; BP diastolic 50–68; PULSE 76–98; RESP 18–20; TEMP 36.6; O2SAT 5–100
[2023-05-16] MEDS: LEVOTHYROXINE SODIUM 50 MCG TAB PO SCH (06:06)
[2023-05-16] MEDS: BUMETANIDE 2.5mg/10ml (0.25 mg/ml) INJ IV SCH ×2 (06:07→17:58)
[2023-05-16 07:15] LABS: BUN/Creatinine Ratio 17.6 (10.0-20.0); Calcium 9.2 mg/dL (8.5-10.1); Potassium 3.9 mmol/L (3.5-5.1)
[2023-05-16] MEDS: CARVEDILOL 3.125 MG TAB PO SCH ×2 (10:04→21:30)
[2023-05-16] MEDS: ATORVASTATIN 20 MG TAB PO SCH (10:05)
[2023-05-16] MEDS: POTASSIUM CHL 10 Meq TABLET PO SCH ×2 (10:05→21:29)
[2023-05-16] MEDS: HYDROcodone-ACET 5/325MG TAB PO PRN (10:06)
[2023-05-16] MEDS: HYDROCORTISONE ACET 25 MG RECTAL SUPP PR SCH ×2 (10:07→21:30)
[2023-05-16] MEDS: RIVAROXABAN 20 MG TAB PO SCH (17:57)
[2023-05-17 04:47] VITALS: BP 97/65; PULSE 63; RESP 18; TEMP 98.5; O2SAT 99
[2023-05-17] MEDS: LEVOTHYROXINE SODIUM 50 MCG TAB PO SCH (06:37)
[2023-05-17] MEDS: BUMETANIDE 2.5mg/10ml (0.25 mg/ml) INJ IV SCH (06:37)
[2023-05-17 07:30] VITALS: BP 107/67; PULSE 79; PULSE 80; TEMP 36.9
[2023-05-17 08:00] VITALS: BP 109/75; PULSE 82; RESP 18; TEMP 97.7; O2SAT 99
[2023-05-17] MEDS ORDERED: BUME2TAB5 PO (10:45)
[2023-05-17] MEDS ORDERED: SACU1TAB PO (10:45)
[2023-05-17] MEDS: ATORVASTATIN 20 MG TAB PO SCH (10:54)
[2023-05-17] MEDS: CARVEDILOL 3.125 MG TAB PO SCH (10:54)
[2023-05-17] MEDS: POTASSIUM CHL 10 Meq TABLET PO SCH (10:54)
[2023-05-17] MEDS: HYDROCORTISONE ACET 25 MG RECTAL SUPP PR SCH (10:55)
[2023-05-17 11:43] VITALS: BP 109/75; PULSE 82
[2023-05-17 13:00] VITALS: BP 131/73; PULSE 98; RESP 20; TEMP 97.9; O2SAT 94
[2023-05-17 17:30] VITALS: BP 126/74; PULSE 88; RESP 20; TEMP 98; O2SAT 95
== END 2023-05-17 17:45 | disposition home health service (06) | DRG 291 ==
LOC: ER 07:09 → TELE 17:31 → TELE-EAST 21:23
PROVIDERS: ADMIT Hospitalist; ATTEND Hospitalist
DX: I13.0 Hypertensive heart and chronic kidney disease with heart failure and stage 1 through stage 4 chronic kidney disease, or unspecified chronic kidney disease (principal); I50.43 Acute on chronic combined systolic (congestive) and diastolic (congestive) heart failure; E44.1 Mild protein-calorie malnutrition; I48.20 Chronic atrial fibrillation, unspecified; Z68.42 Body mass index [BMI] 45.0-49.9, adult; N17.9 Acute kidney failure, unspecified; E03.9 Hypothyroidism, unspecified; N18.30 Chronic kidney disease, stage 3 unspecified; Z79.01 Long term (current) use of anticoagulants; Z90.710 Acquired absence of both cervix and uterus
CPT/HCPCS: 36415; 71045; 80048; 80053; 81001; 83735; 83880; 84439; 84443; 84484; 85025; 85610; 85730; 87081; 93005; 97163; G0378; J3490

== ENCOUNTER 2023-08-18 02:49 | Inpatient (IN) | payer OTHER ==
[~2023-08-18] VITALS: Ht 170.2 cm; Wt 136.0 kg
[~2023-08-18 02:49] MED LIST changes: -FURO1TAB31 PO
[2023-08-18 03:34] LABS: Basophils # (auto) 0.1 10 ^3/uL (0-0.2); Hemoglobin 9.4 g/dL (12.2-16.2); Monocytes # (auto) 0.7 10 ^3/uL (0-1.3); Neutrophils # (auto) 3.8 10 ^3/uL (1.6-8.6)
[2023-08-18 03:36] LABS: Basophils % (auto) 1.1 % (0.0-2.0); Eosinophils # (auto) 0.2 10 ^3/uL (0-0.8); Eosinophils % (auto) 3.5 % (0.0-7.0); Hematocrit 30.2 % (36.0-46.0); Lymphocytes # (auto) 1.8 10 ^3/uL (0.4-5.4); Lymphocytes % (auto) 27.1 % (10.0-50.0); Mean Corpuscular Hemoglobin 21.2 pg (28.0-32.0); Mean Corpuscular Hgb Conc. 31.1 g/dL (32.0-36.0); Mean Corpuscular Volume 68.2 fL (80.0-100.0); Monocytes % (auto) 10.5 % (0.0-12.0); Neutrophils % (auto) 57.8 % (37.0-80.0); Nucleated Red Blood Cells % 0.4 %; Red Blood Cells 4.43 10^6/uL (4.0-5.20); White Blood Cell 6.5 10^3/uL (4.4-10.8)
[2023-08-18 03:43] LABS: Red Cell Distribution Width 21.8 % (11.8-14.3)
[2023-08-18 03:48] LABS: Alanine Aminotransferase 14 U/L (7-40); Albumin 3.8 g/dL (3.2-4.8); Alkaline Phosphatase 162 U/L (46-116); Anion Gap 11 (5-15); Aspartate Aminotransferase 22 U/L (13-40); BUN/Creatinine Ratio 7.6 (10.0-20.0); Blood Urea Nitrogen 11 mg/dL (9-23); Calcium 9.6 mg/dL (8.7-10.4); Carbon Dioxide 22 mmol/L (20-30); Chloride 106 mmol/L (98-107); Glucose 122 mg/dL (74-106); Magnesium 1.6 mg/dL (1.6-2.6); Potassium 3.2 mmol/L (3.5-5.1); Sodium 139 mmol/L (136-145)
[2023-08-18 03:49] LABS: Total Protein 8.3 g/dL (5.7-8.2)
[2023-08-18 04:10] LABS: INR 1.3 (0.9-1.15); Partial Thromboplastin Time 26.2 SEC (24.5-34.5); Prothrombin Time 13.4 sec (9.3-11.8)
[2023-08-18] MEDS ORDERED: ASPirin 81 mg TAB PO ONE (06:15)
[2023-08-18] MEDS ORDERED: MORPHINE SULFATE INJ 2 MG/ml SYRG IV PRN (06:15)
[2023-08-18] MEDS ORDERED: ONDANSETRON HCL 4 MG/2 ML VIAL IV PRN (06:15)
[2023-08-18] MEDS ORDERED: HEPARIN SODIUM (PORCINE) 5000 UNITS/ML 1ML VIAL IV ONE ×2 (06:15→07:00)
[2023-08-18] MEDS ORDERED: ACETAMINOPHEN 325 MG TAB PO PRN (06:15)
[2023-08-18] MEDS ORDERED: NITROGLYCERIN 0.4 MG SL TAB SL PRN (06:15)
[2023-08-18] MEDS ORDERED: HEPARIN DRIP/D5W 100UNITS/ML 250 ML IV SCH ×3 (06:15→15:00)
[2023-08-18 06:49] LABS: Basophils # (auto) 0 10 ^3/uL (0-0.2); Basophils % (auto) 0.7 % (0.0-2.0); Eosinophils # (auto) 0.3 10 ^3/uL (0-0.8); Hemoglobin 9.2 g/dL (12.2-16.2); Lymphocytes # (auto) 1.8 10 ^3/uL (0.4-5.4); Mean Corpuscular Hemoglobin 20.8 pg (28.0-32.0); Monocytes # (auto) 0.8 10 ^3/uL (0-1.3)
[2023-08-18 06:51] LABS: Chloride 107 mmol/L (98-107); Lymphocytes % (auto) 26.7 % (10.0-50.0); Mean Corpuscular Hgb Conc. 30.7 g/dL (32.0-36.0); Mean Corpuscular Volume 67.7 fL (80.0-100.0); Monocytes % (auto) 12.6 % (0.0-12.0); Neutrophils # (auto) 3.7 10 ^3/uL (1.6-8.6); Nucleated Red Blood Cells % 0.4 %; Potassium 3.5 mmol/L (3.5-5.1); Red Blood Cells 4.43 10^6/uL (4.0-5.20); Red Cell Distribution Width 22.3 % (11.8-14.3); Sodium 140 mmol/L (136-145); White Blood Cell 6.6 10^3/uL (4.4-10.8)
[2023-08-18 06:52] LABS: Anion Gap 10 (5-15); Carbon Dioxide 23 mmol/L (20-30)
[2023-08-18 06:53] LABS: Calcium 9.6 mg/dL (8.5-10.1)
[2023-08-18 06:57] LABS: BUN/Creatinine Ratio 10.3 (10.0-20.0); Blood Urea Nitrogen 14 mg/dL (9-23); Glucose 99 mg/dL (74-106)
[2023-08-18 07:00] VITALS: PULSE 110; RESP 18; O2SAT 98
[2023-08-18 07:20] LABS: INR 1.31 (0.9-1.15); Partial Thromboplastin Time 25.7 SEC (24.5-34.5); Prothrombin Time 13.5 sec (9.3-11.8)
[2023-08-18] MEDS: HYDROcodone-ACET 5/325MG TAB PO PRN ×2 (08:10→16:20)
[2023-08-18] MEDS: CARVEDILOL 3.125 MG TAB PO SCH ×2 (10:33→21:53)
[2023-08-18 14:29] LABS: INR 1.36 (0.9-1.15); Partial Thromboplastin Time 39.7 SEC (24.5-34.5)
[2023-08-18 15:12] LABS: Urine Bacteria MANY /hpf (None Seen); Urine Blood 1+ /uL (Negative); Urine Clarity CLOUDY (Clear); Urine Color Brown (Yellow); Urine Protein, UAD 2+ (Negative); Urine Specific Gravity 1.023 (1.001-1.035); Urine WBC 20 /hpf (0 - 5); Urine pH 5.5 (5.0-8.0)
[2023-08-18] MEDS ORDERED: DIGOXIN (250MCG/ML) 2 ML AMPULE IV ONE (16:00)
[2023-08-18 18:45] VITALS: RESP 18; O2SAT 98
[2023-08-18 18:46] VITALS: BP 112/65; PULSE 90; RESP 18; TEMP 97.4; O2SAT 100
[2023-08-18 18:50] VITALS: RESP 18; O2SAT 96
[2023-08-18 20:00] VITALS: PULSE 91; RESP 18; O2SAT 98
[2023-08-18 20:35] LABS: Protein, Urine 87.4 mg/dL (0.0-11.9)
[2023-08-18 20:46] LABS: Creatinine, Urine 270.8 mg/dL (30.0-125.0); Urine Protein/Creatinine Ratio 0.32
[2023-08-18] MEDS: ATORVASTATIN 20 MG TAB PO SCH (21:51)
[2023-08-18 22:00] VITALS: BP 120/67; PULSE 91; RESP 19; TEMP 97.5; O2SAT 99
[2023-08-19] VITALS (7 sets, daily range): BP systolic 99–131; BP diastolic 64–81; PULSE 74–92; RESP 17–21; TEMP 36.9; O2SAT 93–100
[2023-08-19] MEDS: APIXABAN 5 MG TAB PO SCH ×2 (08:46→22:19)
[2023-08-19] MEDS: FUROSEMIDE 40 MG/4 ML VIAL IV SCH (08:49)
[2023-08-19] MEDS: CARVEDILOL 3.125 MG TAB PO SCH ×2 (08:49→22:18)
[2023-08-19 09:23] LABS: Hepatitis B Surface Antigen Negative (Negative)
[2023-08-19 09:44] LABS: Hepatitis C Antibody Negative (Negative)
[2023-08-19] MEDS: HYDROcodone-ACET 5/325MG TAB PO PRN (10:12)
[2023-08-19] MEDS: ATORVASTATIN 20 MG TAB PO SCH (22:18)
[2023-08-20] VITALS (7 sets, daily range): BP systolic 109–122; BP diastolic 61–79; PULSE 70–108; RESP 16–22; TEMP 97.6–98.9; O2SAT 93–98
[2023-08-20] MEDS: CEPHALEXIN 250 MG CAP PO SCH ×3 (03:36→22:00)
[2023-08-20 08:41] LABS: Anion Gap 7 (5-15); Calcium 9.3 mg/dL (8.5-10.1); Carbon Dioxide 25 mmol/L (20-30); Chloride 104 mmol/L (98-107); Potassium 3.8 mmol/L (3.5-5.1); Sodium 136 mmol/L (136-145)
[2023-08-20 08:47] LABS: BUN/Creatinine Ratio 13.3 (10.0-20.0); Blood Urea Nitrogen 17 mg/dL (9-23); Glucose 108 mg/dL (74-106)
[2023-08-20] MEDS: APIXABAN 5 MG TAB PO SCH ×2 (09:17→20:21)
[2023-08-20] MEDS: CARVEDILOL 3.125 MG TAB PO SCH ×2 (09:17→22:00)
[2023-08-20] MEDS: FUROSEMIDE 40 MG/4 ML VIAL IV SCH (09:18)
[2023-08-20] MEDS ORDERED: LEVOTHYROXINE SODIUM 25 MCG TAB PO ONE (15:00)
[2023-08-20] MEDS: ATORVASTATIN 20 MG TAB PO SCH (22:00)
[2023-08-21 07:24] LABS: Hemoglobin 8.6 g/dL (12.2-16.2); Mean Corpuscular Hemoglobin 20.8 pg (28.0-32.0); Mean Corpuscular Hgb Conc. 30.7 g/dL (32.0-36.0); Neutrophils # (auto) 4.2 10 ^3/uL (1.6-8.6); Red Blood Cells 4.16 10^6/uL (4.0-5.20)
[2023-08-21 07:26] LABS: Basophils # (auto) 0 10 ^3/uL (0-0.2); Basophils % (auto) 0.5 % (0.0-2.0); Eosinophils # (auto) 0.6 10 ^3/uL (0-0.8); Eosinophils % (auto) 7.3 % (0.0-7.0); Hematocrit 28.2 % (36.0-46.0); Lymphocytes % (auto) 25.8 % (10.0-50.0); Mean Corpuscular Volume 67.7 fL (80.0-100.0); Monocytes # (auto) 0.9 10 ^3/uL (0-1.3); Monocytes % (auto) 11.6 % (0.0-12.0); Neutrophils % (auto) 54.8 % (37.0-80.0); Nucleated Red Blood Cells % 0.4 %; White Blood Cell 7.7 10^3/uL (4.4-10.8)
[2023-08-21 07:27] LABS: Chloride 102 mmol/L (98-107); Sodium 134 mmol/L (136-145)
[2023-08-21 07:28] LABS: Anion Gap 8 (5-15); Calcium 9.6 mg/dL (8.5-10.1); Carbon Dioxide 24 mmol/L (20-30)
[2023-08-21 07:34] LABS: Blood Urea Nitrogen 16 mg/dL (9-23); Glucose 96 mg/dL (74-106)
[2023-08-21 07:36] LABS: BUN/Creatinine Ratio 13.2 (10.0-20.0)
[2023-08-21 07:42] LABS: Red Cell Distribution Width 21.8 % (11.8-14.3)
[2023-08-21 08:00] VITALS: PULSE 84; PULSE 92; RESP 20; O2SAT 96
[2023-08-21 08:10] LABS: Platelet Estimate Adequate
[2023-08-21] MEDS: APIXABAN 5 MG TAB PO SCH (08:11)
[2023-08-21 08:13] LABS: Anisocytosis Slight; Hypochromia Marked
[2023-08-21 09:00] VITALS: BP 107/79; PULSE 92; RESP 20; TEMP 97.9; O2SAT 96
[2023-08-21] MEDS: CARVEDILOL 3.125 MG TAB PO SCH (10:18)
[2023-08-21] MEDS: FUROSEMIDE 40 MG/4 ML VIAL IV SCH (10:18)
[2023-08-21] MEDS: CEPHALEXIN 250 MG CAP PO SCH (10:18)
[2023-08-21 12:50] VITALS: BP 114/80; PULSE 87; RESP 20; TEMP 98.2; O2SAT 97
[2023-08-21] MEDS ORDERED: FER325T PO (15:05)
[2023-08-21] MEDS ORDERED: CEPH250C PO (15:05)
[2023-08-21] MEDS: FERROUS SULFATE 325mg EC TAB PO SCH ×2 (16:01→18:00)
[2023-08-21] MEDS ORDERED: BUME2TAB5 PO (16:42)
[2023-08-21] MEDS ORDERED: CAR3125T PO (16:42)
[2023-08-21 16:50] VITALS: BP 122/71; PULSE 84; RESP 20; TEMP 97.6; O2SAT 96
[2023-08-21 19:32] VITALS: BP 122/71; PULSE 84; RESP 20; TEMP 97.6; O2SAT 96
== END 2023-08-21 20:30 | disposition home or self-care (01) | DRG 291 ==
LOC: ER 02:49 → TELE 06:23 → TELE-WESTW 18:35
PROVIDERS: ADMIT Family Medicine; ATTEND Family Medicine
DX: I13.0 Hypertensive heart and chronic kidney disease with heart failure and stage 1 through stage 4 chronic kidney disease, or unspecified chronic kidney disease (principal); I50.23 Acute on chronic systolic (congestive) heart failure; I48.20 Chronic atrial fibrillation, unspecified; N39.0 Urinary tract infection, site not specified; N17.9 Acute kidney failure, unspecified; Z68.41 Body mass index [BMI] 40.0-44.9, adult; E66.01 Morbid (severe) obesity due to excess calories; N18.32 Chronic kidney disease, stage 3b; D50.9 Iron deficiency anemia, unspecified; D64.9 Anemia, unspecified; L97.509 Non-pressure chronic ulcer of other part of unspecified foot with unspecified severity; E03.9 Hypothyroidism, unspecified; Z90.710 Acquired absence of both cervix and uterus; Z79.01 Long term (current) use of anticoagulants; Z82.49 Family history of ischemic heart disease and other diseases of the circulatory system; Z83.3 Family history of diabetes mellitus
CPT/HCPCS: 36415; 71045; 76775; 80048; 80053; 81001; 82570; 83735; 83880; 84156; 84443; 84484; 85025; 85610; 85730; 86803; 87340; 93005; 93306; G0378

== ENCOUNTER 2023-09-17 22:53 | Inpatient (IN) | payer OTHER ==
[~2023-09-17] VITALS: Ht 167.6 cm; Wt 137.0 kg
[~2023-09-17 22:53] MED LIST changes: +CEPH250C PO; +FER325T PO; -POTA1TAB4 PO; -RIV20T PO
[2023-09-18] MEDS ORDERED: FUROSEMIDE 40 MG/4 ML VIAL IV ONE ×2 (04:30→18:00)
[2023-09-18] MEDS ORDERED: NITROGLYCERIN 0.2MG/HR TOPICAL PATCH TD ONE (04:30)
[2023-09-18] MEDS ORDERED: ASPirin 81 mg TAB PO ONE (04:30)
[2023-09-18] MEDS ORDERED: ONDANSETRON HCL 4 MG/2 ML VIAL IV ONE (04:30)
[2023-09-18] MEDS ORDERED: MORPHINE SULFATE 4 MG/ML SYR/VIAL IV ONE (04:30)
[2023-09-18 05:07] LABS: Basophils # (auto) 0.1 10 ^3/uL (0-0.2); Hemoglobin 9.5 g/dL (12.2-16.2); Lymphocytes # (auto) 1.3 10 ^3/uL (0.4-5.4); Monocytes # (auto) 0.8 10 ^3/uL (0-1.3); Monocytes % (auto) 13.6 % (0.0-12.0)
[2023-09-18 05:08] LABS: Basophils % (auto) 1.6 % (0.0-2.0); Eosinophils # (auto) 0.8 10 ^3/uL (0-0.8); Eosinophils % (auto) 12.8 % (0.0-7.0); Hematocrit 31.8 % (36.0-46.0); Lymphocytes % (auto) 21.9 % (10.0-50.0); Mean Corpuscular Hemoglobin 20.4 pg (28.0-32.0); Mean Corpuscular Hgb Conc. 29.8 g/dL (32.0-36.0); Mean Corpuscular Volume 68.2 fL (80.0-100.0); Neutrophils % (auto) 50.1 % (37.0-80.0); Nucleated Red Blood Cells % 0.2 %; Red Blood Cells 4.67 10^6/uL (4.0-5.20)
[2023-09-18 05:13] LABS: Red Cell Distribution Width 22.2 % (11.8-14.3)
[2023-09-18 05:24] LABS: INR 1.29 (0.9-1.15); Partial Thromboplastin Time 22.1 SEC (24.5-34.5); Prothrombin Time 13.3 sec (9.3-11.8)
[2023-09-18 05:25] LABS: Alanine Aminotransferase 15 U/L (7-40); Albumin 3.5 g/dL (3.2-4.8); Alkaline Phosphatase 176 U/L (46-116); Anion Gap 8 (5-15); Aspartate Aminotransferase 30 U/L (13-40); BUN/Creatinine Ratio 15.1 (10.0-20.0); Bilirubin, Total 3.4 mg/dL (0.2-1.0); Blood Urea Nitrogen 18 mg/dL (9-23); Calcium 8.9 mg/dL (8.7-10.4); Carbon Dioxide 23 mmol/L (20-30); Chloride 106 mmol/L (98-107); Glucose 100 mg/dL (74-106); Magnesium 1.7 mg/dL (1.6-2.6); Potassium 3.6 mmol/L (3.5-5.1); Sodium 137 mmol/L (136-145); Total Protein 7.8 g/dL (5.7-8.2)
[2023-09-18 06:54] LABS: Anisocytosis Slight; Hypochromia Marked; Platelet Estimate Adequate; Target Cell MODERATE
[2023-09-18 08:30] VITALS: PULSE 88; RESP 17; O2SAT 97
[2023-09-18] MEDS ORDERED: ENOXAPARIN SOD 100 MG/1 ML SYRINGE SC ONE (09:00)
[2023-09-18] MEDS ORDERED: IOHEXOL 350 MG/ML 100ML IJ ONE (10:28)
[2023-09-18 11:40] LABS: Urine Bacteria FEW /hpf (None Seen); Urine Blood Negative /uL (Negative); Urine Clarity Clear (Clear); Urine Color Yellow (Yellow); Urine Protein, UAD 1+ (Negative); Urine Specific Gravity 1.013 (1.001-1.035); Urine WBC 1 /hpf (0 - 5); Urine pH 5.5 (5.0-8.0)
[2023-09-18] MEDS ORDERED: D5W/ SOD CHL 0.9%/KCL 20MEQ 1,000 ML IV SCH ×2 (12:45→13:15)
[2023-09-18] MEDS ORDERED: MORPHINE SULFATE INJ 2 MG/ml SYRG IV PRN ×3 (12:45)
[2023-09-18] MEDS ORDERED: HEPARIN DRIP/D5W 100UNITS/ML 250 ML IV SCH ×3 (12:45→23:30)
[2023-09-18] MEDS ORDERED: NITROGLYCERIN 0.4 MG SL TAB SL PRN (12:45)
[2023-09-18] MEDS ORDERED: ONDANSETRON HCL 4 MG/2 ML VIAL IV PRN (12:45)
[2023-09-18] MEDS ORDERED: SOD CHL 0.45% 1,000 ML IV SCH (14:00)
[2023-09-18 19:42] VITALS: BP 114/71; PULSE 110; RESP 18; TEMP 98.4; O2SAT 96
[2023-09-18 19:43] VITALS: RESP 18
[2023-09-18 20:00] VITALS: BP 114/71; PULSE 104; PULSE 110; PULSE 99; RESP 18; TEMP 98.4; O2SAT 96
[2023-09-18] MEDS: BUMETANIDE 1 MG TAB PO SCH (20:06)
[2023-09-18] MEDS: ATORVASTATIN 20 MG TAB PO SCH (21:34)
[2023-09-18] MEDS: FAMOTIDINE 20 MG TAB PO SCH (21:34)
[2023-09-18] MEDS: METOPROLOL TARTRATE 25 MG TAB PO SCH (21:35)
[2023-09-18 21:49] LABS: Free T3 2.99 pg/mL (2.3-4.2); Free T4 (Free Thyroxine) 0.94 ng/dL (0.89-1.76)
[2023-09-18 21:55] LABS: INR 1.32 (0.9-1.15); Partial Thromboplastin Time 29.9 SEC (24.5-34.5); Prothrombin Time 13.6 sec (9.3-11.8)
[2023-09-18 22:00] VITALS: BP 108/82; PULSE 85; RESP 18; TEMP 97.6; O2SAT 97
[2023-09-18] MEDS ORDERED: SACUBITRIL-VALSARTAN 24mg/26mg TAB PO SCH (22:00)
[2023-09-18] MEDS ORDERED: HEPARIN SODIUM (PORCINE) 5000 UNITS/ML 1ML VIAL SC ONE (23:30)
[2023-09-19] VITALS (7 sets, daily range): BP systolic 102–128; BP diastolic 52–84; PULSE 68–122; RESP 16–20; TEMP 97.6–98.6; O2SAT 94–97
[2023-09-19] MEDS: BUMETANIDE 1 MG TAB PO SCH ×2 (05:58→17:58)
[2023-09-19 06:49] LABS: INR 1.39 (0.9-1.15); Partial Thromboplastin Time 65.7 SEC (24.5-34.5); Prothrombin Time 14.3 sec (9.3-11.8)
[2023-09-19] MEDS ORDERED: ASPirin-EC 81 mg tab PO SCH (10:00)
[2023-09-19] MEDS ORDERED: LEVOTHYROXINE SODIUM 100 MCG TAB PO ONE (10:00)
[2023-09-19] MEDS: METOPROLOL TARTRATE 25 MG TAB PO SCH ×2 (10:00→21:25)
[2023-09-19] MEDS: FAMOTIDINE 20 MG TAB PO SCH ×2 (10:12→21:22)
[2023-09-19 10:20] LABS: Eosinophils # (auto) 0.9 10 ^3/uL (0-0.8); Lymphocytes # (auto) 1.5 10 ^3/uL (0.4-5.4); Mean Corpuscular Hemoglobin 20.2 pg (28.0-32.0); Mean Corpuscular Hgb Conc. 29.9 g/dL (32.0-36.0)
[2023-09-19 10:23] LABS: Basophils # (auto) 0.1 10 ^3/uL (0-0.2); Basophils % (auto) 1.2 % (0.0-2.0); Eosinophils % (auto) 14.8 % (0.0-7.0); Hematocrit 30.2 % (36.0-46.0); Lymphocytes % (auto) 25.1 % (10.0-50.0); Mean Corpuscular Volume 67.4 fL (80.0-100.0); Monocytes # (auto) 0.7 10 ^3/uL (0-1.3); Monocytes % (auto) 12.2 % (0.0-12.0); Neutrophils # (auto) 2.8 10 ^3/uL (1.6-8.6); Neutrophils % (auto) 46.7 % (37.0-80.0); Nucleated Red Blood Cells % 0.5 %; Red Blood Cells 4.48 10^6/uL (4.0-5.20)
[2023-09-19 10:25] LABS: Red Cell Distribution Width 21.4 % (11.8-14.3)
[2023-09-19 10:45] LABS: Anion Gap 8 (5-15); Carbon Dioxide 25 mmol/L (20-30); Chloride 105 mmol/L (98-107); Potassium 3.9 mmol/L (3.5-5.1); Sodium 138 mmol/L (136-145)
[2023-09-19 10:47] LABS: Calcium 9.2 mg/dL (8.5-10.1)
[2023-09-19 10:51] LABS: BUN/Creatinine Ratio 19.9 (10.0-20.0); Blood Urea Nitrogen 27 mg/dL (9-23); Glucose 111 mg/dL (74-106)
[2023-09-19 11:22] LABS: Magnesium 1.6 mg/dL (1.6-2.6)
[2023-09-19 13:53] LABS: INR 1.31 (0.9-1.15); Partial Thromboplastin Time 67.5 SEC (24.5-34.5); Prothrombin Time 13.5 sec (9.3-11.8)
[2023-09-19] MEDS ORDERED: LEVO25TA6 PO (15:08)
[2023-09-19] MEDS ORDERED: AMIO200T33 PO (15:08)
[2023-09-19] MEDS ORDERED: POTA-220 PO (15:08)
[2023-09-19] MEDS ORDERED: METO25TA93 PO (15:08)
[2023-09-19] MEDS ORDERED: POTA10TA51 PO (15:08)
[2023-09-19] MEDS ORDERED: FURO40TA4 PO (15:11)
[2023-09-19] MEDS: ATORVASTATIN 20 MG TAB PO SCH (21:21)
[2023-09-19] MEDS: APIXABAN 5 MG TAB PO SCH (21:21)
[2023-09-20] VITALS (7 sets, daily range): BP systolic 91–149; BP diastolic 54–69; PULSE 62–122; RESP 16–20; TEMP 97.3–98.8; O2SAT 94–99
[2023-09-20] MEDS: BUMETANIDE 1 MG TAB PO SCH ×2 (05:42→18:00)
[2023-09-20] MEDS: FERROUS SULFATE 325mg EC TAB PO SCH ×2 (08:00→18:00)
[2023-09-20 09:08] LABS: Chloride 102 mmol/L (98-107); Potassium 3.9 mmol/L (3.5-5.1); Sodium 136 mmol/L (136-145)
[2023-09-20 09:09] LABS: Anion Gap 10 (5-15); Calcium 9.6 mg/dL (8.5-10.1); Carbon Dioxide 24 mmol/L (20-30)
[2023-09-20 09:14] LABS: BUN/Creatinine Ratio 15.2 (10.0-20.0); Blood Urea Nitrogen 23 mg/dL (9-23); Glucose 96 mg/dL (74-106)
[2023-09-20 09:34] LABS: Hemoglobin 9.6 g/dL (12.2-16.2)
[2023-09-20] MEDS: METOPROLOL TARTRATE 25 MG TAB PO SCH (09:51)
[2023-09-20] MEDS: APIXABAN 5 MG TAB PO SCH (09:52)
[2023-09-20] MEDS: FAMOTIDINE 20 MG TAB PO SCH (09:53)
[2023-09-20] MEDS ORDERED: APIX5TAB PO (13:58)
[2023-09-20] MEDS ORDERED: AMIO200T33 PO (13:58)
[2023-09-20] MEDS ORDERED: BUME2TAB5 PO (13:58)
== END 2023-09-20 18:00 | disposition home or self-care (01) | DRG 281 ==
LOC: ER 22:53 → TELE 09-18 12:50 → TELE-WESTW 09-18 18:18
PROVIDERS: ADMIT Hospitalist; ATTEND Hospitalist
DX: I21.4 Non-ST elevation (NSTEMI) myocardial infarction (principal); I13.0 Hypertensive heart and chronic kidney disease with heart failure and stage 1 through stage 4 chronic kidney disease, or unspecified chronic kidney disease; I31.39 Other pericardial effusion (noninflammatory); N17.9 Acute kidney failure, unspecified; I42.9 Cardiomyopathy, unspecified; I50.9 Heart failure, unspecified; I48.91 Unspecified atrial fibrillation; N18.30 Chronic kidney disease, stage 3 unspecified; D50.9 Iron deficiency anemia, unspecified; E03.9 Hypothyroidism, unspecified; I27.20 Pulmonary hypertension, unspecified; I34.0 Nonrheumatic mitral (valve) insufficiency; I87.2 Venous insufficiency (chronic) (peripheral); E05.90 Thyrotoxicosis, unspecified without thyrotoxic crisis or storm; E78.5 Hyperlipidemia, unspecified; I25.10 Atherosclerotic heart disease of native coronary artery without angina pectoris; Z82.49 Family history of ischemic heart disease and other diseases of the circulatory system; Z90.710 Acquired absence of both cervix and uterus; Z91.119 Patient's noncompliance with dietary regimen due to unspecified reason; Z91.148 Patient's other noncompliance with medication regimen for other reason
CPT/HCPCS: 36415; 71045; 71275; 80048; 80053; 81001; 83735; 83880; 84439; 84443; 84481; 84484; 85014; 85018; 85025; 85379; 85610; 85730; 93005; 96365; 96372; 96375; G0378; J2405

== ENCOUNTER 2023-09-28 18:55 | Inpatient (IN) | payer OTHER ==
[~2023-09-28] VITALS: Ht 170.2 cm; Wt 142.5 kg
[~2023-09-28 18:55] MED LIST changes: +AMIO200T33 PO; +APIX5TAB PO; -CEPH250C PO; +FURO40TA4 PO; +LEVO25TA6 PO; +POTA-220 PO
[2023-09-28] MEDS ORDERED: HYDROcodone-ACET 10/325MG TAB PO ONE (19:30)
[2023-09-28 19:57] LABS: Basophils # (auto) 0.1 10 ^3/uL (0-0.2); Hemoglobin 10.2 g/dL (12.2-16.2); Lymphocytes # (auto) 1.2 10 ^3/uL (0.4-5.4); Monocytes # (auto) 1.1 10 ^3/uL (0-1.3)
[2023-09-28 19:58] LABS: Basophils % (auto) 0.9 % (0.0-2.0); Eosinophils % (auto) 11.3 % (0.0-7.0); Hematocrit 35.1 % (36.0-46.0); Lymphocytes % (auto) 14.1 % (10.0-50.0); Mean Corpuscular Hgb Conc. 29.2 g/dL (32.0-36.0); Mean Corpuscular Volume 68.7 fL (80.0-100.0); Monocytes % (auto) 12.4 % (0.0-12.0); Neutrophils # (auto) 5.3 10 ^3/uL (1.6-8.6); Neutrophils % (auto) 61.3 % (37.0-80.0); Nucleated Red Blood Cells % 0.1 %; White Blood Cell 8.6 10^3/uL (4.4-10.8)
[2023-09-28 20:00] LABS: Red Cell Distribution Width 22.6 % (11.8-14.3)
[2023-09-28] MEDS ORDERED: HYDROcodone-ACET 10/325MG TAB ONE (20:12)
[2023-09-28 20:16] VITALS: PULSE 105; RESP 27; O2SAT 97
[2023-09-28 20:16] LABS: Alanine Aminotransferase 15 U/L (7-40); Albumin 3.7 g/dL (3.2-4.8); Alkaline Phosphatase 202 U/L (46-116); Anion Gap 7 (5-15); Aspartate Aminotransferase 26 U/L (13-40); BUN/Creatinine Ratio 10.3 (10.0-20.0); Blood Urea Nitrogen 16 mg/dL (9-23); Calcium 9.4 mg/dL (8.7-10.4); Carbon Dioxide 22 mmol/L (20-30); Chloride 109 mmol/L (98-107); Glucose 107 mg/dL (74-106); Potassium 3.9 mmol/L (3.5-5.1); Sodium 138 mmol/L (136-145)
[2023-09-28 20:17] LABS: Bilirubin, Total 4.2 mg/dL (0.2-1.0); Total Protein 8.3 g/dL (5.7-8.2)
[2023-09-28 20:23] LABS: Lactic Acid w/Reflex 2.7 mmol/L (0.4-2.0)
[2023-09-28] MEDS ORDERED: SODIUM CHLORIDE 0.9% 1,000 ML IV ONE (20:30)
[2023-09-28] MEDS ORDERED: dilTIAZem 25 MG/5 ML VIAL IV ONE ×2 (22:05→22:15)
[2023-09-28] MEDS ORDERED: FUROSEMIDE 40 MG/4 ML VIAL IV ONE (23:00)
[2023-09-28] MEDS ORDERED: FUROSEMIDE 40 MG/4 ML VIAL ONE (23:17)
[2023-09-29 00:43] LABS: Urine Bacteria NONE SEEN /hpf (None Seen); Urine Blood Negative /uL (Negative); Urine Clarity Clear (Clear); Urine Color Yellow (Yellow); Urine Hyaline Cast FEW /lpf (0 - 2); Urine Protein, UAD 1+ (Negative); Urine Specific Gravity 1.021 (1.001-1.035); Urine WBC <1 /hpf (0 - 5); Urine pH 5.5 (5.0-8.0)
[2023-09-29] MEDS ORDERED: NITROGLYCERIN 0.4 MG SL TAB SL PRN (03:30)
[2023-09-29] MEDS ORDERED: ACETAMINOPHEN 325 MG TAB PO PRN (03:30)
[2023-09-29] MEDS ORDERED: MORPHINE SULFATE INJ 2 MG/ml SYRG IV PRN (03:30)
[2023-09-29] MEDS ORDERED: hydrALAZINE HCL 10 MG TAB PO PRN (03:30)
[2023-09-29] MEDS ORDERED: HEPARIN DRIP/D5W 100UNITS/ML 250 ML IV SCH ×2 (03:30→14:45)
[2023-09-29] MEDS ORDERED: HEPARIN SODIUM (PORCINE) 5000 UNITS/ML 1ML VIAL IV ONE ×3 (03:30→22:15)
[2023-09-29] MEDS ORDERED: SODIUM CHLORIDE 0.9% 500 ML IV ONE (03:45)
[2023-09-29 04:36] LABS: Chloride 110 mmol/L (98-107); Potassium 4.2 mmol/L (3.5-5.1); Sodium 139 mmol/L (136-145)
[2023-09-29 04:37] LABS: Anion Gap 7 (5-15); Calcium 8.7 mg/dL (8.7-10.4); Carbon Dioxide 22 mmol/L (20-30)
[2023-09-29] MEDS: ASPirin-EC 81 mg tab PO SCH ×2 (04:38→10:47)
[2023-09-29 04:42] LABS: BUN/Creatinine Ratio 17.3 (10.0-20.0); Glucose 106 mg/dL (74-106)
[2023-09-29 04:59] LABS: Eosinophils # (auto) 0.8 10 ^3/uL (0-0.8); Lymphocytes # (auto) 1.4 10 ^3/uL (0.4-5.4); Neutrophils # (auto) 4.5 10 ^3/uL (1.6-8.6); White Blood Cell 7.6 10^3/uL (4.4-10.8)
[2023-09-29 05:00] LABS: Blood Urea Nitrogen 26 mg/dL (9-23)
[2023-09-29 05:01] LABS: Basophils # (auto) 0 10 ^3/uL (0-0.2); Basophils % (auto) 0.5 % (0.0-2.0); Hematocrit 30.3 % (36.0-46.0); Hemoglobin 9.2 g/dL (12.2-16.2); Lymphocytes % (auto) 18.6 % (10.0-50.0); Mean Corpuscular Hemoglobin 20.2 pg (28.0-32.0); Mean Corpuscular Hgb Conc. 30.2 g/dL (32.0-36.0); Mean Corpuscular Volume 67.1 fL (80.0-100.0); Monocytes # (auto) 0.9 10 ^3/uL (0-1.3); Monocytes % (auto) 11.2 % (0.0-12.0); Neutrophils % (auto) 58.7 % (37.0-80.0); Nucleated Red Blood Cells % 0.1 %; Red Blood Cells 4.52 10^6/uL (4.0-5.20)
[2023-09-29 05:08] LABS: INR 1.19 (0.9-1.15); Partial Thromboplastin Time 26.5 SEC (24.5-34.5); Prothrombin Time 12.4 sec (9.3-11.8)
[2023-09-29 05:20] LABS: Red Cell Distribution Width 22.7 % (11.8-14.3)
[2023-09-29] MEDS: LEVOTHYROXINE SODIUM 25 MCG TAB PO SCH (07:15)
[2023-09-29 08:25] LABS: Anisocytosis Slight; Hypochromia Marked; Platelet Estimate Adequate
[2023-09-29 09:42] VITALS: PULSE 89; RESP 18; O2SAT 99
[2023-09-29] MEDS: CARVEDILOL 3.125 MG TAB PO SCH ×2 (10:00→22:00)
[2023-09-29] MEDS: FUROSEMIDE 100 MG/10ML VIAL IV SCH ×2 (12:45→18:00)
[2023-09-29 14:22] LABS: INR 1.26 (0.9-1.15); Partial Thromboplastin Time 27.5 SEC (24.5-34.5)
[2023-09-29 19:20] VITALS: PULSE 93; RESP 20; O2SAT 98
[2023-09-29] MEDS: ONDANSETRON HCL 4 MG/2 ML VIAL IV PRN (21:25)
[2023-09-29 21:51] LABS: INR 1.26 (0.9-1.15); Partial Thromboplastin Time 26.9 SEC (24.5-34.5)
[2023-09-29] MEDS: HEPARIN DRIP/D5W 100UNITS/ML 250 ML IV SCH (22:11)
[2023-09-29] MEDS: ATORVASTATIN 20 MG TAB PO SCH (22:13)
[2023-09-30 05:25] LABS: Chloride 110 mmol/L (98-107); Sodium 141 mmol/L (136-145)
[2023-09-30 05:26] LABS: Anion Gap 9 (5-15); Carbon Dioxide 22 mmol/L (20-30)
[2023-09-30 05:27] LABS: Calcium 9.5 mg/dL (8.5-10.1)
[2023-09-30] MEDS ORDERED: DOCUSATE SOD 100 MG CAP PO ONE (05:30)
[2023-09-30 05:32] LABS: BUN/Creatinine Ratio 15.9 (10.0-20.0); Blood Urea Nitrogen 23 mg/dL (9-23); Glucose 93 mg/dL (74-106)
[2023-09-30 05:45] LABS: INR 1.22 (0.9-1.15); Partial Thromboplastin Time 27.3 SEC (24.5-34.5); Prothrombin Time 12.6 sec (9.3-11.8)
[2023-09-30] MEDS: LEVOTHYROXINE SODIUM 25 MCG TAB PO SCH (06:41)
[2023-09-30 08:15] VITALS: PULSE 101; RESP 22; O2SAT 100
[2023-09-30] MEDS: FUROSEMIDE 100 MG/10ML VIAL IV SCH ×2 (08:48→18:30)
[2023-09-30] MEDS: ASPirin-EC 81 mg tab PO SCH (10:25)
[2023-09-30] MEDS: CARVEDILOL 3.125 MG TAB PO SCH ×2 (10:25→22:00)
[2023-09-30 10:54] LABS: Monocytes # (auto) 0.8 10 ^3/uL (0-1.3); Nucleated Red Blood Cells % 0.1 %
[2023-09-30 10:56] LABS: Basophils # (auto) 0.1 10 ^3/uL (0-0.2); Basophils % (auto) 0.8 % (0.0-2.0); Eosinophils # (auto) 0.9 10 ^3/uL (0-0.8); Eosinophils % (auto) 11.3 % (0.0-7.0); Hematocrit 29.1 % (36.0-46.0); Hemoglobin 8.7 g/dL (12.2-16.2); Lymphocytes # (auto) 1.1 10 ^3/uL (0.4-5.4); Lymphocytes % (auto) 14.3 % (10.0-50.0); Mean Corpuscular Hemoglobin 20.1 pg (28.0-32.0); Mean Corpuscular Volume 67.1 fL (80.0-100.0); Monocytes % (auto) 10.7 % (0.0-12.0); Neutrophils # (auto) 4.9 10 ^3/uL (1.6-8.6); Neutrophils % (auto) 62.9 % (37.0-80.0); Red Blood Cells 4.34 10^6/uL (4.0-5.20); White Blood Cell 7.7 10^3/uL (4.4-10.8)
[2023-09-30 10:58] LABS: Red Cell Distribution Width 22.8 % (11.8-14.3)
[2023-09-30 11:07] LABS: INR 1.29 (0.9-1.15); Partial Thromboplastin Time 29.2 SEC (24.5-34.5); Prothrombin Time 13.3 sec (9.3-11.8)
[2023-09-30] MEDS ORDERED: HEPARIN SODIUM (PORCINE) 5000 UNITS/ML 1ML VIAL IV ONE ×2 (11:45→22:45)
[2023-09-30] MEDS: HEPARIN DRIP/D5W 100UNITS/ML 250 ML IV SCH (14:08)
[2023-09-30] MEDS ORDERED: METO25TA93 PO (14:57)
[2023-09-30 19:33] LABS: INR 1.26 (0.9-1.15); Partial Thromboplastin Time 27.9 SEC (24.5-34.5)
[2023-09-30] MEDS: ONDANSETRON HCL 4 MG/2 ML VIAL IV PRN (19:44)
[2023-09-30] MEDS: HYDROcodone-ACET 5/325MG TAB PO PRN (19:44)
[2023-09-30 20:00] VITALS: PULSE 104; RESP 14; O2SAT 96
[2023-09-30] MEDS ORDERED: HEPARIN DRIP/D5W 100UNITS/ML 250 ML IV SCH (20:00)
[2023-09-30] MEDS: ATORVASTATIN 20 MG TAB PO SCH (22:21)
[2023-10-01 01:52] LABS: INR 1.34 (0.9-1.15); Prothrombin Time 13.8 sec (9.3-11.8)
[2023-10-01 01:57] LABS: Partial Thromboplastin Time > 139.0 SEC (24.5-34.5)
[2023-10-01] MEDS: FUROSEMIDE 100 MG/10ML VIAL IV SCH ×2 (06:21→17:43)
[2023-10-01] MEDS: LEVOTHYROXINE SODIUM 25 MCG TAB PO SCH (07:11)
[2023-10-01 08:00] VITALS: PULSE 100; RESP 16; O2SAT 95
[2023-10-01 08:17] LABS: Chloride 108 mmol/L (98-107); Potassium 3.8 mmol/L (3.5-5.1); Sodium 139 mmol/L (136-145)
[2023-10-01 08:18] LABS: Anion Gap 8 (5-15); Carbon Dioxide 23 mmol/L (20-30)
[2023-10-01 08:19] LABS: Calcium 9.4 mg/dL (8.5-10.1)
[2023-10-01 08:20] LABS: Basophils # (auto) 0 10 ^3/uL (0-0.2); Hemoglobin 8.9 g/dL (12.2-16.2); Monocytes # (auto) 1.1 10 ^3/uL (0-1.3); Nucleated Red Blood Cells % 0.1 %
[2023-10-01 08:23] LABS: Basophils % (auto) 0.2 % (0.0-2.0); Eosinophils # (auto) 0.6 10 ^3/uL (0-0.8); Eosinophils % (auto) 4.8 % (0.0-7.0); Glucose 103 mg/dL (74-106); Hematocrit 29.9 % (36.0-46.0); Lymphocytes # (auto) 0.8 10 ^3/uL (0.4-5.4); Lymphocytes % (auto) 6.6 % (10.0-50.0); Mean Corpuscular Hemoglobin 19.6 pg (28.0-32.0); Mean Corpuscular Hgb Conc. 29.7 g/dL (32.0-36.0); Mean Corpuscular Volume 66.2 fL (80.0-100.0); Monocytes % (auto) 8.8 % (0.0-12.0); Neutrophils # (auto) 10.1 10 ^3/uL (1.6-8.6); Neutrophils % (auto) 79.6 % (37.0-80.0); Red Blood Cells 4.52 10^6/uL (4.0-5.20); White Blood Cell 12.7 10^3/uL (4.4-10.8)
[2023-10-01 08:24] LABS: BUN/Creatinine Ratio 16.8 (10.0-20.0); Blood Urea Nitrogen 24 mg/dL (9-23)
[2023-10-01 08:37] LABS: Red Cell Distribution Width 22.1 % (11.8-14.3)
[2023-10-01 08:51] LABS: INR 1.27 (0.9-1.15); Partial Thromboplastin Time 38.2 SEC (24.5-34.5); Prothrombin Time 13.1 sec (9.3-11.8)
[2023-10-01] MEDS: CARVEDILOL 3.125 MG TAB PO SCH ×2 (10:06→22:13)
[2023-10-01] MEDS: ASPirin-EC 81 mg tab PO SCH (10:07)
[2023-10-01] MEDS: HEPARIN DRIP/D5W 100UNITS/ML 250 ML IV SCH ×2 (10:07→17:40)
[2023-10-01 20:37] VITALS: PULSE 103; O2SAT 97
[2023-10-01] MEDS: APIXABAN 5 MG TAB PO SCH (22:00)
[2023-10-01] MEDS: ATORVASTATIN 20 MG TAB PO SCH (22:13)
[2023-10-02] VITALS (31 sets, daily range): BP systolic 79–133; BP diastolic 32–80; PULSE 9–114; RESP 13–33; TEMP 98.1–98.7; O2SAT 88–100
[2023-10-02 06:11] LABS: Chloride 109 mmol/L (98-107); Potassium 3.9 mmol/L (3.5-5.1); Sodium 139 mmol/L (136-145)
[2023-10-02 06:12] LABS: Anion Gap 8 (5-15); Carbon Dioxide 22 mmol/L (20-30)
[2023-10-02] MEDS: LEVOTHYROXINE SODIUM 25 MCG TAB PO SCH (06:12)
[2023-10-02] MEDS: FUROSEMIDE 100 MG/10ML VIAL IV SCH ×2 (06:12→18:00)
[2023-10-02 06:13] LABS: Calcium 8.9 mg/dL (8.7-10.4)
[2023-10-02 06:17] LABS: Glucose 92 mg/dL (74-106)
[2023-10-02 06:18] LABS: BUN/Creatinine Ratio 13.4 (10.0-20.0); Blood Urea Nitrogen 18 mg/dL (9-23)
[2023-10-02] MEDS: ASPirin-EC 81 mg tab PO SCH (08:12)
[2023-10-02] MEDS: CARVEDILOL 3.125 MG TAB PO SCH ×2 (08:13→19:55)
[2023-10-02] MEDS: APIXABAN 5 MG TAB PO SCH ×2 (08:13→19:56)
[2023-10-02] MEDS: HYDROcodone-ACET 5/325MG TAB PO PRN (16:31)
[2023-10-02] MEDS: NOREPINEPHRINE 8 MG/250ML KIT 250 ML IV SCH (18:45)
[2023-10-02 19:17] LABS: Basophils # (auto) 0 10 ^3/uL (0-0.2); Eosinophils # (auto) 0.6 10 ^3/uL (0-0.8)
[2023-10-02 19:19] LABS: Basophils % (auto) 0.3 % (0.0-2.0); Eosinophils % (auto) 5.6 % (0.0-7.0); Hematocrit 28.6 % (36.0-46.0); Hemoglobin 8.8 g/dL (12.2-16.2); Lymphocytes # (auto) 0.9 10 ^3/uL (0.4-5.4); Lymphocytes % (auto) 8.5 % (10.0-50.0); Mean Corpuscular Hemoglobin 20.4 pg (28.0-32.0); Mean Corpuscular Hgb Conc. 30.7 g/dL (32.0-36.0); Mean Corpuscular Volume 66.5 fL (80.0-100.0); Monocytes # (auto) 1.2 10 ^3/uL (0-1.3); Monocytes % (auto) 11.4 % (0.0-12.0); Neutrophils # (auto) 7.5 10 ^3/uL (1.6-8.6); Neutrophils % (auto) 74.2 % (37.0-80.0); White Blood Cell 10.1 10^3/uL (4.4-10.8)
[2023-10-02 19:21] LABS: Red Cell Distribution Width 22.5 % (11.8-14.3)
[2023-10-02 19:36] LABS: Alanine Aminotransferase 10 U/L (7-40); Albumin 3.1 g/dL (3.2-4.8); Alkaline Phosphatase 148 U/L (46-116); Anion Gap 4 (5-15); Aspartate Aminotransferase 16 U/L (13-40); BUN/Creatinine Ratio 18.5 (10.0-20.0); Bilirubin, Total 3.5 mg/dL (0.2-1.0); Blood Urea Nitrogen 25 mg/dL (9-23); Calcium 8.9 mg/dL (8.7-10.4); Carbon Dioxide 26 mmol/L (20-30); Chloride 108 mmol/L (98-107); Glucose 102 mg/dL (74-106); Potassium 3.9 mmol/L (3.5-5.1); Sodium 138 mmol/L (136-145)
[2023-10-02] MEDS: ATORVASTATIN 20 MG TAB PO SCH (19:56)
[2023-10-03] VITALS (49 sets, daily range): BP systolic 88–163; BP diastolic 41–93; PULSE 81–123; RESP 12–96; TEMP 97.4–99; O2SAT 92–100
[2023-10-03 05:05] LABS: Eosinophils # (auto) 0.7 10 ^3/uL (0-0.8); Hematocrit 29.5 % (36.0-46.0); Hemoglobin 8.9 g/dL (12.2-16.2); Mean Corpuscular Volume 65.9 fL (80.0-100.0); Nucleated Red Blood Cells % 0.1 %
[2023-10-03 05:08] LABS: Basophils # (auto) 0 10 ^3/uL (0-0.2); Basophils % (auto) 0.4 % (0.0-2.0); Eosinophils % (auto) 6.9 % (0.0-7.0); Lymphocytes # (auto) 1.3 10 ^3/uL (0.4-5.4); Lymphocytes % (auto) 13.9 % (10.0-50.0); Mean Corpuscular Hemoglobin 19.8 pg (28.0-32.0); Mean Corpuscular Hgb Conc. 30.1 g/dL (32.0-36.0); Monocytes % (auto) 10.7 % (0.0-12.0); Neutrophils # (auto) 6.6 10 ^3/uL (1.6-8.6); Neutrophils % (auto) 68.1 % (37.0-80.0); Red Blood Cells 4.47 10^6/uL (4.0-5.20); White Blood Cell 9.6 10^3/uL (4.4-10.8)
[2023-10-03 05:11] LABS: Red Cell Distribution Width 21.9 % (11.8-14.3)
[2023-10-03 05:21] LABS: Alanine Aminotransferase 11 U/L (7-40); Albumin 3.3 g/dL (3.2-4.8); Alkaline Phosphatase 172 U/L (46-116); Anion Gap 8 (5-15); Aspartate Aminotransferase 20 U/L (13-40); BUN/Creatinine Ratio 19.4 (10.0-20.0); Bilirubin, Total 3.3 mg/dL (0.2-1.0); Blood Urea Nitrogen 26 mg/dL (9-23); Calcium 9.1 mg/dL (8.7-10.4); Carbon Dioxide 24 mmol/L (20-30); Chloride 106 mmol/L (98-107); Glucose 105 mg/dL (74-106); Potassium 3.8 mmol/L (3.5-5.1); Sodium 138 mmol/L (136-145); Total Protein 7.4 g/dL (5.7-8.2)
[2023-10-03] MEDS: FUROSEMIDE 100 MG/10ML VIAL IV SCH ×2 (05:45→16:52)
[2023-10-03] MEDS: CARVEDILOL 3.125 MG TAB PO SCH ×3 (06:08→22:08)
[2023-10-03] MEDS: ASPirin-EC 81 mg tab PO SCH (07:42)
[2023-10-03] MEDS: APIXABAN 5 MG TAB PO SCH ×2 (07:42→22:00)
[2023-10-03] MEDS: LEVOTHYROXINE SODIUM 25 MCG TAB PO SCH (07:46)
[2023-10-03 08:55] LABS: Hypochromia Marked; Platelet Estimate Adequate
[2023-10-03] MEDS: NOREPINEPHRINE 8 MG/250ML KIT 250 ML IV SCH (10:02)
[2023-10-03] MEDS: ATORVASTATIN 20 MG TAB PO SCH (22:07)
[2023-10-04] VITALS (20 sets, daily range): BP systolic 85–126; BP diastolic 50–75; PULSE 82–104; RESP 12–29; TEMP 97.8–98.5; O2SAT 94–100
[2023-10-04 04:53] LABS: Basophils # (auto) 0.1 10 ^3/uL (0-0.2); Hemoglobin 8.5 g/dL (12.2-16.2); Monocytes # (auto) 0.9 10 ^3/uL (0-1.3)
[2023-10-04 04:55] LABS: Basophils % (auto) 0.8 % (0.0-2.0); Eosinophils # (auto) 0.8 10 ^3/uL (0-0.8); Eosinophils % (auto) 9.5 % (0.0-7.0); Hematocrit 28.1 % (36.0-46.0); Lymphocytes # (auto) 1.4 10 ^3/uL (0.4-5.4); Mean Corpuscular Hemoglobin 19.7 pg (28.0-32.0); Mean Corpuscular Hgb Conc. 30.4 g/dL (32.0-36.0); Monocytes % (auto) 10.8 % (0.0-12.0); Neutrophils % (auto) 61.9 % (37.0-80.0); Nucleated Red Blood Cells % 0.1 %; Red Blood Cells 4.33 10^6/uL (4.0-5.20)
[2023-10-04 04:56] LABS: Red Cell Distribution Width 22.2 % (11.8-14.3)
[2023-10-04 05:15] LABS: Alanine Aminotransferase 12 U/L (7-40); Albumin 3.2 g/dL (3.2-4.8); Alkaline Phosphatase 177 U/L (46-116); Anion Gap 10 (5-15); Aspartate Aminotransferase 21 U/L (13-40); Bilirubin, Total 3.3 mg/dL (0.2-1.0); Blood Urea Nitrogen 26 mg/dL (9-23); Calcium 8.9 mg/dL (8.7-10.4); Carbon Dioxide 22 mmol/L (20-30); Chloride 104 mmol/L (98-107); Glucose 99 mg/dL (74-106); Potassium 3.7 mmol/L (3.5-5.1); Sodium 136 mmol/L (136-145); Total Protein 7.2 g/dL (5.7-8.2)
[2023-10-04] MEDS: LEVOTHYROXINE SODIUM 25 MCG TAB PO SCH (06:35)
[2023-10-04] MEDS: FUROSEMIDE 100 MG/10ML VIAL IV SCH (06:37)
[2023-10-04] MEDS: CARVEDILOL 3.125 MG TAB PO SCH ×2 (09:38→22:07)
[2023-10-04] MEDS: APIXABAN 5 MG TAB PO SCH ×2 (10:30→22:07)
[2023-10-04] MEDS: ceFAZolin 1GM/50ML 50 ML IV SCH ×2 (15:07→22:07)
[2023-10-04] MEDS: FUROSEMIDE 40 MG/4 ML VIAL IV SCH (17:49)
[2023-10-04] MEDS: ATORVASTATIN 20 MG TAB PO SCH (22:06)
[2023-10-05] VITALS (8 sets, daily range): BP systolic 98–126; BP diastolic 50–67; PULSE 78–100; RESP 14–20; TEMP 97.5–98.2; O2SAT 94–100
[2023-10-05] MEDS: ceFAZolin 1GM/50ML 50 ML IV SCH ×3 (05:53→22:26)
[2023-10-05] MEDS: FUROSEMIDE 40 MG/4 ML VIAL IV SCH ×2 (06:01→17:56)
[2023-10-05] MEDS: LEVOTHYROXINE SODIUM 25 MCG TAB PO SCH (06:02)
[2023-10-05 08:59] LABS: Chloride 104 mmol/L (98-107); Potassium 3.5 mmol/L (3.5-5.1); Sodium 139 mmol/L (136-145)
[2023-10-05 09:00] LABS: Anion Gap 13 (5-15); Calcium 9.2 mg/dL (8.5-10.1); Carbon Dioxide 22 mmol/L (20-30)
[2023-10-05 09:05] LABS: BUN/Creatinine Ratio 23.8 (10.0-20.0); Blood Urea Nitrogen 29 mg/dL (9-23); Glucose 99 mg/dL (74-106)
[2023-10-05] MEDS: APIXABAN 5 MG TAB PO SCH (10:00)
[2023-10-05] MEDS: CARVEDILOL 3.125 MG TAB PO SCH ×2 (10:05→22:32)
[2023-10-05 12:29] LABS: Hemoglobin 8.5 g/dL (12.2-16.2)
[2023-10-05 12:31] LABS: Hematocrit 27.8 % (36.0-46.0)
[2023-10-05] MEDS: POTASSIUM CHL 10 Meq TABLET PO SCH (22:31)
[2023-10-05] MEDS: ATORVASTATIN 20 MG TAB PO SCH (22:31)
[2023-10-06 05:00] VITALS: BP 111/68; PULSE 96; RESP 18; TEMP 97.9; O2SAT 97
[2023-10-06] MEDS: ceFAZolin 1GM/50ML 50 ML IV SCH (06:00)
[2023-10-06] MEDS: FUROSEMIDE 40 MG/4 ML VIAL IV SCH (06:04)
[2023-10-06 06:07] LABS: Hematocrit 28.4 % (36.0-46.0); Mean Corpuscular Hemoglobin 19.9 pg (28.0-32.0)
[2023-10-06] MEDS: LEVOTHYROXINE SODIUM 25 MCG TAB PO SCH (06:09)
[2023-10-06 06:10] LABS: Hemoglobin 8.7 g/dL (12.2-16.2); Mean Corpuscular Hgb Conc. 30.5 g/dL (32.0-36.0); Mean Corpuscular Volume 65.4 fL (80.0-100.0); Red Blood Cells 4.34 10^6/uL (4.0-5.20); White Blood Cell 7.6 10^3/uL (4.4-10.8)
[2023-10-06 06:14] LABS: Chloride 105 mmol/L (98-107); Potassium 3.7 mmol/L (3.5-5.1); Sodium 138 mmol/L (136-145)
[2023-10-06 06:15] LABS: Anion Gap 9 (5-15); Carbon Dioxide 24 mmol/L (20-30)
[2023-10-06 06:20] LABS: BUN/Creatinine Ratio 13.4 (10.0-20.0); Blood Urea Nitrogen 16 mg/dL (9-23); Glucose 107 mg/dL (74-106)
[2023-10-06 07:09] LABS: Blast Cells 0; Myelocytes % 0; Promyelocytes % 0; Reactive Lymphocytes 0; Red Cell Distribution Width 22.7 % (11.8-14.3)
[2023-10-06 08:00] VITALS: BP 107/69; PULSE 95; PULSE 97; RESP 22; TEMP 98.3; O2SAT 96
[2023-10-06 09:08] LABS: Band Neutrophils % (manual) 3; Basophils % (manual) 1 (0.0-2.0); Eosinophils % (manual) 5 (0-7); Lymphocytes % (manual) 17 (10.0-50.0); Metamyelocytes % 1; Monocytes % (manual) 11 (0-12)
[2023-10-06 09:09] LABS: Platelet Estimate Adequate; Target Cell MODERATE
[2023-10-06] MEDS: POTASSIUM CHL 10 Meq TABLET PO SCH ×2 (10:13→21:19)
[2023-10-06] MEDS: CARVEDILOL 3.125 MG TAB PO SCH ×2 (10:15→21:19)
[2023-10-06 13:00] VITALS: BP 101/57; PULSE 102; RESP 21; TEMP 97.7; O2SAT 100
[2023-10-06 17:00] VITALS: BP 109/77; PULSE 86; RESP 22; TEMP 98.4; O2SAT 94
[2023-10-06] MEDS: FUROSEMIDE 20 MG TAB PO SCH (17:39)
[2023-10-06 20:00] VITALS: PULSE 94
[2023-10-06] MEDS: AMIODARONE HCL 200 MG TAB PO SCH (21:19)
[2023-10-06] MEDS: ATORVASTATIN 20 MG TAB PO SCH (21:19)
[2023-10-06 22:00] VITALS: BP 105/80; PULSE 95; RESP 18; TEMP 98.9; O2SAT 96
[2023-10-07] VITALS (8 sets, daily range): BP systolic 95–119; BP diastolic 53–72; PULSE 76–105; RESP 18–21; TEMP 97.7–98.7; O2SAT 21–98
[2023-10-07 06:25] LABS: Mean Corpuscular Hemoglobin 19.8 pg (28.0-32.0)
[2023-10-07 06:29] LABS: Hemoglobin 8.6 g/dL (12.2-16.2); Mean Corpuscular Hgb Conc. 28.8 g/dL (32.0-36.0); Mean Corpuscular Volume 68.8 fL (80.0-100.0); Red Blood Cells 4.36 10^6/uL (4.0-5.20); White Blood Cell 7.7 10^3/uL (4.4-10.8)
[2023-10-07 06:34] LABS: Red Cell Distribution Width 22.2 % (11.8-14.3)
[2023-10-07 06:35] LABS: Band Neutrophils % (manual) 0; Basophils % (manual) 0 (0.0-2.0); Blast Cells 0; Metamyelocytes % 0; Myelocytes % 0; Promyelocytes % 0; Reactive Lymphocytes 0
[2023-10-07 06:36] LABS: Chloride 105 mmol/L (98-107); Potassium 3.7 mmol/L (3.5-5.1); Sodium 138 mmol/L (136-145)
[2023-10-07 06:37] LABS: Anion Gap 9 (5-15); Calcium 9.3 mg/dL (8.5-10.1); Carbon Dioxide 24 mmol/L (20-30)
[2023-10-07 06:42] LABS: BUN/Creatinine Ratio 12.4 (10.0-20.0); Blood Urea Nitrogen 14 mg/dL (9-23); Glucose 126 mg/dL (74-106)
[2023-10-07] MEDS: FUROSEMIDE 20 MG TAB PO SCH ×2 (06:54→17:51)
[2023-10-07] MEDS: LEVOTHYROXINE SODIUM 25 MCG TAB PO SCH (06:54)
[2023-10-07 09:07] LABS: Eosinophils % (manual) 10 (0-7); Lymphocytes % (manual) 19 (10.0-50.0); Monocytes % (manual) 16 (0-12); Platelet Estimate Adequate
[2023-10-07] MEDS: AMIODARONE HCL 200 MG TAB PO SCH ×2 (10:08→21:10)
[2023-10-07] MEDS: POTASSIUM CHL 10 Meq TABLET PO SCH ×2 (10:08→21:44)
[2023-10-07] MEDS: CARVEDILOL 3.125 MG TAB PO SCH ×2 (10:09→21:10)
[2023-10-07] MEDS: ATORVASTATIN 20 MG TAB PO SCH (21:10)
[2023-10-07] MEDS ORDERED: MELATONIN 5 MG TAB PO PRN (23:45)
[2023-10-07] MEDS: HYDROcodone-ACET 5/325MG TAB PO PRN (23:53)
[2023-10-08 05:00] VITALS: BP 102/70; PULSE 83; RESP 18; TEMP 97.5; O2SAT 100
[2023-10-08] MEDS: FUROSEMIDE 20 MG TAB PO SCH (05:40)
[2023-10-08] MEDS: LEVOTHYROXINE SODIUM 25 MCG TAB PO SCH (06:19)
[2023-10-08 08:00] VITALS: PULSE 90; PULSE 92; RESP 18; O2SAT 91
[2023-10-08 08:54] VITALS: BP 101/74; PULSE 104; RESP 18; TEMP 97.3; O2SAT 100
[2023-10-08] MEDS: AMIODARONE HCL 200 MG TAB PO SCH (09:34)
[2023-10-08] MEDS: POTASSIUM CHL 10 Meq TABLET PO SCH (09:34)
[2023-10-08] MEDS: CARVEDILOL 3.125 MG TAB PO SCH (09:35)
[2023-10-08 12:48] VITALS: BP 113/63; PULSE 101; RESP 17; TEMP 98.5; O2SAT 98
[2023-10-08 14:42] VITALS: BP 113/63; PULSE 101; TEMP 36.9
[2023-10-08 16:51] VITALS: BP 116/66; PULSE 109; RESP 21; TEMP 98.3; O2SAT 99
== END 2023-10-08 18:00 | DRG 280 ==
LOC: ER 18:55 → EDBD 18:55 → ICU CENTRL 09-29 03:39 → TELE 09-29 03:39 → DOU IN ICU 10-02 03:57 → ICU CENTRL 10-03 02:08 → DOU IN ICU 10-03 18:36 → TELE-EAST 10-04 17:18
PROVIDERS: ADMIT Hospitalist; ATTEND Hospitalist
PROC: 05HA33Z Insertion of Infusion Device into Left Brachial Vein, Percutaneous Approach (ICD-10-PCS; 2023-09-29)
PROC: B54NZZA Ultrasonography of Left Upper Extremity Veins, Guidance (ICD-10-PCS; 2023-09-29)
PROC: 05HD33Z Insertion of Infusion Device into Right Cephalic Vein, Percutaneous Approach (ICD-10-PCS; principal; 2023-09-30)
PROC: B54MZZA Ultrasonography of Right Upper Extremity Veins, Guidance (ICD-10-PCS; 2023-09-30)
DX: I21.4 Non-ST elevation (NSTEMI) myocardial infarction (principal); I50.23 Acute on chronic systolic (congestive) heart failure; I13.0 Hypertensive heart and chronic kidney disease with heart failure and stage 1 through stage 4 chronic kidney disease, or unspecified chronic kidney disease; I42.8 Other cardiomyopathies; I48.20 Chronic atrial fibrillation, unspecified; N17.9 Acute kidney failure, unspecified; Z68.42 Body mass index [BMI] 45.0-49.9, adult; E66.01 Morbid (severe) obesity due to excess calories; I34.0 Nonrheumatic mitral (valve) insufficiency; F41.9 Anxiety disorder, unspecified; D50.9 Iron deficiency anemia, unspecified; E78.5 Hyperlipidemia, unspecified; I25.10 Atherosclerotic heart disease of native coronary artery without angina pectoris; E11.22 Type 2 diabetes mellitus with diabetic chronic kidney disease; N18.32 Chronic kidney disease, stage 3b; Z74.01 Bed confinement status; Z79.01 Long term (current) use of anticoagulants; Z79.899 Other long term (current) drug therapy; Z82.49 Family history of ischemic heart disease and other diseases of the circulatory system; Z83.3 Family history of diabetes mellitus; Z90.710 Acquired absence of both cervix and uterus
CPT/HCPCS: 36415; 71045; 76775; 78582; 80048; 80053; 81001; 83605; 83690; 83735; 83880; 84484; 85007; 85014; 85018; 85025; 85027; 85379; 85610; 85730; 87040; 87077; 87081; 87086; 87186; 87205; 93005; 93970; 97110; 97116; 97163; 97530; G0378; J2405

== ENCOUNTER 2023-11-21 18:44 | Inpatient (IN) | payer OTHER ==
[~2023-11-21] VITALS: Ht 170.2 cm; Wt 146.8 kg
[~2023-11-21 18:44] MED LIST changes: +METO25TA93 PO
[2023-11-21 19:17] LABS: Basophils # (auto) 0 10 ^3/uL (0-0.2); Basophils % (auto) 0.8 % (0.0-2.0); Eosinophils # (auto) 0.6 10 ^3/uL (0-0.8); Eosinophils % (auto) 9.1 % (0.0-7.0); Hematocrit 34.5 % (36.0-46.0); Hemoglobin 10.1 g/dL (12.2-16.2); Lymphocytes # (auto) 1.4 10 ^3/uL (0.4-5.4); Lymphocytes % (auto) 22.1 % (10.0-50.0); Mean Corpuscular Hemoglobin 19.7 pg (28.0-32.0); Mean Corpuscular Hgb Conc. 29.4 g/dL (32.0-36.0); Mean Corpuscular Volume 67.1 fL (80.0-100.0); Monocytes # (auto) 0.8 10 ^3/uL (0-1.3); Monocytes % (auto) 12.3 % (0.0-12.0); Neutrophils # (auto) 3.5 10 ^3/uL (1.6-8.6); Neutrophils % (auto) 55.7 % (37.0-80.0); Nucleated Red Blood Cells % 0.3 %; Red Blood Cells 5.14 10^6/uL (4.0-5.20); White Blood Cell 6.3 10^3/uL (4.4-10.8)
[2023-11-21 19:18] LABS: Red Cell Distribution Width 28.4 % (11.8-14.3)
[2023-11-21 19:35] LABS: INR 1.26 (0.9-1.15); Partial Thromboplastin Time 25.9 SEC (24.5-34.5)
[2023-11-21 19:39] LABS: Alanine Aminotransferase 23 U/L (7-40); Albumin 3.8 g/dL (3.2-4.8); Alkaline Phosphatase 206 U/L (46-116); Anion Gap 11 (5-15); Aspartate Aminotransferase 32 U/L (13-40); BUN/Creatinine Ratio 18.5 (10.0-20.0); Bilirubin, Total 3.5 mg/dL (0.2-1.0); Blood Urea Nitrogen 23 mg/dL (9-23); Calcium 10.1 mg/dL (8.7-10.4); Carbon Dioxide 23 mmol/L (20-30); Chloride 108 mmol/L (98-107); Glucose 126 mg/dL (74-106); Potassium 3.1 mmol/L (3.5-5.1); Sodium 142 mmol/L (136-145)
[2023-11-21 19:40] LABS: Total Protein 8.4 g/dL (5.7-8.2)
[2023-11-21] MEDS: ASPirin 81 mg TAB PO ONE (19:51)
[2023-11-21 20:13] LABS: Anisocytosis Moderate; Hypochromia Marked; Platelet Estimate Adequate; Tear Drop Cells FEW
[2023-11-21 20:14] LABS: Target Cell FEW
[2023-11-21 21:52] VITALS: PULSE 119; RESP 18; O2SAT 99
[2023-11-21] MEDS: IOHEXOL 350 MG/ML 100ML IJ ONE (22:06)
[2023-11-21] MEDS ORDERED: MORPHINE SULFATE INJ 2 MG/ml SYRG IV PRN ×2 (22:15)
[2023-11-21] MEDS ORDERED: HYDROcodone-ACET 5/325MG TAB PO PRN (22:15)
[2023-11-21] MEDS ORDERED: NITROGLYCERIN 0.4 MG SL TAB SL PRN (22:15)
[2023-11-21] MEDS: POTASSIUM CHL 20 Meq TABLET PO ONE (23:19)
[2023-11-21] MEDS: METOPROLOL TARTRATE 25 MG TAB PO ONE (23:20)
[2023-11-22 05:44] LABS: Basophils # (auto) 0.1 10 ^3/uL (0-0.2); Hemoglobin 9.7 g/dL (12.2-16.2); Mean Corpuscular Hemoglobin 20.1 pg (28.0-32.0); Nucleated Red Blood Cells % 0.3 %
[2023-11-22 05:48] LABS: Basophils % (auto) 0.8 % (0.0-2.0); Eosinophils # (auto) 0.6 10 ^3/uL (0-0.8); Eosinophils % (auto) 8.5 % (0.0-7.0); Hematocrit 32.4 % (36.0-46.0); Lymphocytes # (auto) 1.3 10 ^3/uL (0.4-5.4); Lymphocytes % (auto) 17.6 % (10.0-50.0); Mean Corpuscular Volume 66.9 fL (80.0-100.0); Monocytes # (auto) 1.2 10 ^3/uL (0-1.3); Monocytes % (auto) 16.3 % (0.0-12.0); Neutrophils # (auto) 4.2 10 ^3/uL (1.6-8.6); Neutrophils % (auto) 56.8 % (37.0-80.0); Red Blood Cells 4.84 10^6/uL (4.0-5.20); White Blood Cell 7.3 10^3/uL (4.4-10.8)
[2023-11-22 05:58] LABS: Red Cell Distribution Width 28.4 % (11.8-14.3)
[2023-11-22 06:16] LABS: Anion Gap 14 (5-15); Calcium 9.8 mg/dL (8.7-10.4); Carbon Dioxide 20 mmol/L (20-30); Chloride 108 mmol/L (98-107); Potassium 3.2 mmol/L (3.5-5.1); Sodium 142 mmol/L (136-145)
[2023-11-22 06:22] LABS: BUN/Creatinine Ratio 19.4 (10.0-20.0); Blood Urea Nitrogen 24 mg/dL (9-23); Glucose 96 mg/dL (74-106)
[2023-11-22 08:01] VITALS: PULSE 112; RESP 22; O2SAT 96
[2023-11-22] MEDS ORDERED: ASPirin 81 mg TAB PO SCH (10:00)
[2023-11-22] MEDS: FUROSEMIDE 40 MG/4 ML VIAL IV SCH (10:54)
[2023-11-22] MEDS: APIXABAN 5 MG TAB PO SCH (10:55)
[2023-11-22] MEDS: AMIODARONE HCL 200 MG TAB PO SCH (10:55)
[2023-11-22] MEDS: ATORVASTATIN 20 MG TAB PO SCH (10:55)
[2023-11-22] MEDS: POTASSIUM CHL 20 Meq TABLET PO SCH (10:55)
[2023-11-22] MEDS: SACUBITRIL-VALSARTAN 24mg/26mg TAB PO SCH (10:55)
[2023-11-22 11:10] VITALS: BP 111/68; PULSE 111; RESP 18; TEMP 98; O2SAT 98
[2023-11-22 16:16] VITALS: BP 100/66; PULSE 90; RESP 18; TEMP 98.6; O2SAT 94
[2023-11-22] MEDS ORDERED: APIX5TAB PO (17:40)
[2023-11-22] MEDS ORDERED: BUME2TAB5 PO (17:40)
[2023-11-22] MEDS ORDERED: CAR3125T PO (17:40)
[2023-11-22] MEDS ORDERED: POTA-220 PO (17:40)
[2023-11-22] MEDS ORDERED: SACU1TAB PO (17:40)
[2023-11-22 18:40] VITALS: BP 100/66; PULSE 90; RESP 18; TEMP 98.6; O2SAT 94
[2023-11-22] MEDS ORDERED: AMIODARONE HCL 200 MG TAB PO SCH (22:00)
[2023-11-23] MEDS ORDERED: EMPAGLIFLOZIN 10 MG TAB PO SCH (10:00)
== END 2023-11-22 20:52 | disposition home health service (06) | DRG 280 ==
LOC: ER 18:44 → TELE 22:33 → TELE-WESTW 11-22 11:10
PROVIDERS: ADMIT Nurse Practitioner Family; ATTEND Hospitalist
DX: I13.0 Hypertensive heart and chronic kidney disease with heart failure and stage 1 through stage 4 chronic kidney disease, or unspecified chronic kidney disease (principal); I21.A1 Myocardial infarction type 2; I50.23 Acute on chronic systolic (congestive) heart failure; I48.19 Other persistent atrial fibrillation; Z68.43 Body mass index [BMI] 50.0-59.9, adult; I25.10 Atherosclerotic heart disease of native coronary artery without angina pectoris; N18.9 Chronic kidney disease, unspecified; E78.00 Pure hypercholesterolemia, unspecified; E66.9 Obesity, unspecified; E87.6 Hypokalemia; I83.019 Varicose veins of right lower extremity with ulcer of unspecified site; Z90.710 Acquired absence of both cervix and uterus; Z79.01 Long term (current) use of anticoagulants; Z82.49 Family history of ischemic heart disease and other diseases of the circulatory system; Z83.3 Family history of diabetes mellitus; Z82.61 Family history of arthritis
CPT/HCPCS: 36415; 71045; 71275; 80048; 80053; 83690; 83880; 84484; 85025; 85379; 85610; 85730; 87077; 87186; 87205; 93005; G0378